=== PATIENT | female | born 1930 | race Caucasian/White ===

== ENCOUNTER 2017-03-10 19:17 | Inpatient (IN) | payer MEDICARE ==
--- NOTE | 2017-03-10 20:12 | RAD ---
RADIOGRAPH RIGHT HIP 2 VIEWS: 03/10/17 HISTORY: 87-year-old female with acute traumatic right hip pain from fall. FINDINGS: Intertrochanteric fracture. IMPRESSION: Acute, traumatic, angulated, comminuted, and displaced right intertrochanteric fracture. POS: [facility]
[2017-03-10 20:21] LABS: #Eosinphils 0.1 thou/uL (0.0-0.7); #Monocytes 0.7 thou/uL (0.11-0.59); #Neutrophils 8.8 thou/uL (1.40-6.50); %Basophils 0.2 % (0.0-1.0); %Eosinophils 0.6 % (0.0-10.0); %Lymphocytes 9.6 % (21.0-51.0); %Monocytes 6.4 % (0.0-10.0); Hematocrit 35.8 % (36.0-47.0); Mean Platelet Volume 5.7 fL (7.4-10.4); Red Blood Cell (RBC) Count 3.89 mill/uL (4.20-5.40); White Blood Cell (WBC) Count 10.5 thou/uL (4.8-10.8)
[2017-03-10 20:28] LABS: PTT 24.4 SEC (22.9-36.1); Prothrombin Time 14.4 SEC (12.0-14.7)
[2017-03-10 20:45] LABS: ALT (SGPT) 16 U/L (8-55); AST (SGOT) 24 U/L (5-34); Alkaline Phosphatase 53 U/L (40-150); Anion Gap 11 mmol/L (10-20); BUN (Urea Nitrogen) 12 mg/dL (9.8-20.1); Bilirubin, Total 0.3 mg/dL (0.2-1.2); Calc. Creatinine Clearance 0 mL/min (70-130); Calcium 8.3 mg/dL (7.8-10.44); Carbon Dioxide 25 mmol/L (23-31); Chloride 103 mmol/L (98-107); Estimated GFR-MDRD 64; Globulin 3.4 g/dL (2.4-3.5); Protein, Total 6.8 g/dL (6.0-8.3)
--- NOTE | 2017-03-10 21:04 | RAD ---
RADIOGRAPH PELVIS 1 VIEW: Date: 03/10/17 Time: 7:54 p.m. HISTORY: 87-year-old female status post acute pelvic trauma from fall. FINDINGS: Comminuted fracture of the right intertrochanteric region of the proximal right femur. The lesser tr ochanteric fracture fragment is medially and inferiorly displaced. There is varus angulation, and ov erlap of fracture fragments. Diffuse osteopenia and a large amount of overlying bowel gas and stool, could obscure a fracture of the sacrum. IMPRESSION: Acute, traumatic, displaced right intertrochanteric fracture. POS: [facility]
--- NOTE | 2017-03-10 21:06 | RAD ---
RADIOGRAPH CHEST 1 VIEW: Supine 03/10/17 HISTORY: 87-year-old female for preoperative clearance for acute, traumatic, right intertrochanteric fracture . FINDINGS: There is no air space density or pulmonary edema. The lateral costophrenic angles are sharp. Supine positioning makes this study insensitive for pneumothorax detection. IMPRESSION: No acute pulmonary findings. lizzie [] POS: [facility]
[2017-03-10] MEDS ORDERED: Fentanyl 100 MCG/2 ML VIAL ONE (21:15)
--- NOTE | 2017-03-10 21:15 | RAD ---
RADIOGRAPH RIGHT KNEE 2 VIEWS: Date: 03/10/17 Time: 8:30 p.m. HISTORY: 87-year-old female with acute traumatic right knee pain due to fall. FINDINGS: There are two vertically oriented screws, and a cerclage wire, at the patella. There is suprapatella r anterior soft tissue swelling. There is diffuse, severe osteopenia. No acute fracture is identifie d, but in general, at least a three view, and preferably a four view, radiograph of the knee is robyn mmended for trauma, to increase the sensitivity for the detection of mildly displaced and nondispla diana fractures. No high grade degenerative changes. No dislocation. IMPRESSION: 1. Status post pin and wire fixation of old patellar fracture. 2. No acute fracture identified. 3. Suprapatellar mild anterior soft tissue swelling. 4. Severe osteoporosis. POS: [facility]
[2017-03-10] MEDS ORDERED: Dextrose 5% in Water 1,000 ML IV PRN (22:20)
[2017-03-10] MEDS ORDERED: hydrALAZINE 20 MG/ML VIAL SLOW IVP PRN (22:20)
[2017-03-10] MEDS ORDERED: HYDROcodone/Acetaminophen 5/325 mg Tablet PO PRN ×2 (22:20)
[2017-03-10] MEDS ORDERED: Ondansetron HCl/PF 4 MG/2 ML Vial IVP PRN (22:20)
[2017-03-10] MEDS ORDERED: Ondansetron ODT 4 MG TAB PO PRN (22:20)
[2017-03-10] MEDS ORDERED: Dextrose 50% Abboject 50 ML SYRINGE SLOW IVP PRN (22:20)
--- NOTE | 2017-03-10 22:59 | HP ---
REQUESTING PHYSICIAN: Dr. Gramajo. ATTENDING SURGEON: Dr. Rivera. CONSULTATIONS: Orthopedics, Dr. Varner. HISTORY OF PRESENT ILLNESS: The patient is an 87-year-old woman who lives in an apartment alone. W hen she was reaching up to turn on the ceiling fan, lost her balance and fell landing on her right h ip. The patient denied any loss of consciousness. She was able to activate her Life Alert and EMS arrived and brought her to the Emergency Department, evaluated, examined and noted to have a right i ntertrochanteric fracture of her femur, at which time we were asked to evaluate the patient for admi ssion and obtained orthopedic consultations. ALLERGIES: None. CURRENT MEDICATIONS: Megace, levothyroxine and aspirin. PAST MEDICAL HISTORY: Hypothyroidism, anxiety, depression and mild dementia. PAST SURGICAL HISTORY: Bilateral mastectomy, right knee scope, thyroidectomy, bladder sling and hys terectomy. SOCIAL HISTORY: Patient lives home alone near her granddaughter. She denies drug, alcohol or tobac co use. REVIEW OF SYSTEMS: Ten-point review of systems was negative, unless otherwise stated. PHYSICAL EXAMINATION: VITAL SIGNS: Blood pressure 152/64, heart rate 68, respirations 18, temperature is 98.0 and oxygen saturation is 100% on room air. GENERAL: Patient is resting in the emergency room bed. She is alert and oriented x2. [place] coma scale is 14. Patient is lying with her eyes closed. HEENT: Head is normocephalic, atraumatic. Eyes: Extraocular motion intact. PERRLA bilaterally. Ears are atraumatic without discharge. Nose is atraumatic without discharge. Oropharynx is clear. NECK: Nontender. Trachea is midline. No JVD. CHEST: Clear to auscultation with good inspiratory and expiratory effort. HEART: Regular rate and rhythm. ABDOMEN: Soft, flat and nontender. Pelvis is stable with tenderness to the right lateral hip, whic h she holds in some external rotation. EXTREMITIES: Neurovascularly intact x4. BACK: By report is atraumatic and nontender. LABORATORY FINDINGS: White blood cell count 10.5, hemoglobin 11.6, hematocrit 35.8 and platelets 30 3. Sodium 135, potassium 3.8, chloride 103, CO2 of 25, BUN 12, creatinine 0.84 and glucose 133. LF Ts are unremarkable. PTT 24, PT 14 and INR 1.1. RADIOGRAPHIC REPORTS: Radiographs of the right hip show an acute traumatic angulated comminuted and displaced right intertrochanteric fracture. ASSESSMENT AND PLAN: 1. Status post ground level fall. 2. Acute traumatic pain. 3. Right femoral neck fracture. PLAN: Will be to admit the patient to the surgical floor, pain management, pulmonary toilet, gastri tis, mechanical DVT prophylaxis. Overnight, the patient will be made n.p.o. at midnight. Per kelsey jones with Dr. Varner, patient will undergo surgical intervention tomorrow. The evaluation examin ation, laboratory and radiographic findings were all discussed with Dr. Rivera at the time of dictati on. He was in agreement with this plan. The patient's family's questions were answered at this michael e also.
[2017-03-10] MEDS: Ketorolac Tromethamine 30 MG/ML VIAL IVP SCH (23:55)
[2017-03-10] MEDS: Sodium Chloride 0.9% 1,000 ML IV SCH (23:56)
[2017-03-11] MEDS: Ketorolac Tromethamine 30 MG/ML VIAL IVP SCH ×2 (05:10→12:04)
[2017-03-11 05:36] LABS: #Lymphocytes 1.2 thou/uL (1.20-3.40); #Monocytes 1.1 thou/uL (0.11-0.59); #Neutrophils 10.8 thou/uL (1.40-6.50); %Basophils 0.1 % (0.0-1.0); %Eosinophils 0.1 % (0.0-10.0); %Lymphocytes 9.3 % (21.0-51.0); Hematocrit 31.6 % (36.0-47.0); Mean Platelet Volume 5.5 fL (7.4-10.4); Red Blood Cell (RBC) Count 3.44 mill/uL (4.20-5.40); White Blood Cell (WBC) Count 13.1 thou/uL (4.8-10.8)
[2017-03-11 05:54] LABS: Anion Gap 12 mmol/L (10-20); BUN (Urea Nitrogen) 15 mg/dL (9.8-20.1); Calc. Creatinine Clearance 30 mL/min (70-130); Carbon Dioxide 23 mmol/L (23-31); Chloride 103 mmol/L (98-107); Estimated GFR-MDRD 69
[2017-03-11 08:22] LABS: Magnesium 1.8 mg/dL (1.6-2.6); Phosphorus 4.1 mg/dL (2.3-4.7)
--- NOTE | 2017-03-11 08:42 | RAD ---
SINGLE VIEW OF CHEST: Date: 03/11/17 COMPARISON: 03/10/17. HISTORY: Tachycardia. FINDINGS: Single view of the chest shows a normal sized cardiomediastinal silhouette. Increased interstitial l gordo markings and hyperexpansion of the lungs are likely secondary to COPD. Biapical pleural thickeni ng is seen. There is no evidence of consolidation, mass, or pleural effusion. IMPRESSION: COPD without acute cardiopulmonary disease. POS: [facility]
[2017-03-11] MEDS: Sodium Chloride 0.9% 1,000 ML IV SCH ×2 (09:03→16:53)
[2017-03-11] MEDS: Famotidine 20 MG TAB PO SCH (09:04)
[2017-03-11] MEDS ORDERED: CEFAZOLIN/Water 2 GM/20 ML SYRINGE SLOW IVP SCH (09:30)
[2017-03-11] MEDS: Morphine 2 MG/ML SYRINGE SLOW IVP PRN (09:56)
[2017-03-11] MEDS ORDERED: CEFAZOLIN/Water 2 GM/20 ML SYRINGE ONE (12:05)
[2017-03-11] MEDS ORDERED: PHENYLEPHRINE-NS 100 MCG/ML 10 ML SYRINGE ONE (13:03)
[2017-03-11] MEDS ORDERED: Propofol 200 MG/20 ML VIAL ONE (13:03)
[2017-03-11] MEDS ORDERED: Lidocaine 1% PF 5 ML VIAL ONE (13:03)
[2017-03-11] MEDS ORDERED: Fentanyl 100 MCG/2 ML VIAL ONE (13:15)
--- NOTE | 2017-03-11 13:24 | CON ---
DATE OF CONSULTATION: 03/11/2017 HISTORY OF PRESENT ILLNESS: We were asked to see the patient to the emergency room. The patient is a very sweet lady, who was in her new apartment for the last week. She went to turn on the ceiling fan and she states she tripped over her own foot. She feels fell on her left hip. Her granddaughter is at the bedside with her. Patient recently moved here a week ago after her passed within the last 2 weeks. She is very sweet, oriented, answers questions appropriately. She does have pain. She states that is mild, as long as she does not move. She denies any numbness, tingling down the feet. Granddaughter states for what they know grandma she is very healthy and her new doctor upon arriving in [facility] is Dr. Garzon. PAST MEDICAL HISTORY: Positive for thyroid disorder, occasional anxiousness, nervousness. She is not sure if she gets rapid heart rate, but she does get a feeling of some pulsations once in a while. ALLERGIES: No known drug allergies. CURRENT MEDICATIONS: Megestrol, levothyroxine, aspirin. SOCIAL HISTORY: She now resides behind her granddaughter and lives on her own apartment. She is active. No alcohol or nicotine products. FAMILY HISTORY: Noncontributory. PAST SURGICAL HISTORY: Bilateral mastectomy, thyroid, bladder sling, hysterectomy, and right knee surgery. PSYCHIATRIC HISTORY: She does have some depression, anxiety and onset of some mild dementia. REVIEW OF SYSTEMS: Denies any shortness of breath, chest pain. No HEENT problems, no bowel or bladder problems, no extremity issues, no neuropathies, only complaint is right hip pain. Rest of review of systems is negative. PHYSICAL EXAMINATION: GENERAL: Very frail looking female resting in bed, in no acute distress. Speech is clear. Affect pleasant. Answers questions appropriately. She is alert and oriented x3. HEENT: Face symmetric. Tongue midline. NECK: Supple. Moving neck well. EXTREMITIES: Upper extremities. No positive findings found. Strength sensations and pulses are intact and equal. Left lower extremity: Few bruises on the lower extremity, but able to move leg well. DP and PT pulses are intact as are sensations. Her lower extremity DP, PT pulses intact. Sensations are intact as is proprioception, but movement of that right hip causes a good deal of pain. She does have some tenderness to palpation over the greater trochanteric bursa area in the groin. ASSESSMENT: Right hip fracture. PLAN: I spoke with the granddaughter and the patient about options. She is still active. Her just passed and she moved to town. She would like to remain active. Therefore, we would like to do a right TFN Nailing as has been explained to the patient and granddaughter and they are amenable to go forth with surgery. We discussed the risks and benefits of the surgical intervention. They are still agreeable to go forth with surgery. She needs to be cleared by Trauma and Anesthesia before any surgical intervention and this has been explained to them and they understand. We will keep her n.p.o., but she may use some Lemon Glycerine Swabs to help with mouth dryness. If she is cleared for surgery, we will get her on the surgical schedule today and get her fixed up and hopefully will work with PT and OT in the next few days. ALBINA
[2017-03-11] MEDS ORDERED: Ondansetron HCl/PF 4 MG/2 ML Vial IVP PRN (13:55)
[2017-03-11] MEDS ORDERED: Promethazine HCl 25 MG/ML VIAL SLOW IVP PRN (13:55)
[2017-03-11] MEDS ORDERED: Promethazine HCl 25 MG/ML VIAL IM PRN (13:55)
--- NOTE | 2017-03-11 15:19 | PRG ---
DATE OF SERVICE: 03/11/2017 DATE OF ADMISSION: 03/10/2017 SUBJECTIVE: The patient is hospital day #2 status post ground level fall sustaining hip fracture. The patient has currently been n.p.o. overnight, awaiting surgery. The patient was cleared for surg mario this morning and will be taken down to the operating room, preop holding area, shortly. The pat ient states that her pain is being controlled and she has no complaints at this time. OBJECTIVE: VITAL SIGNS: Temperature is 98.4, heart rate 87, respirations 14, and blood pressure 119/70. GENERAL: Patient is resting comfortably in bed. She is alert and oriented x3. HEENT: Unremarkable. CHEST: Clear to auscultation bilaterally. HEART: Regular rate and rhythm. ABDOMEN: Soft, flat, nontender. EXTREMITIES: Neurovascularly intact x4. The patient still has pain along the right hip consistent with her fracture. LABORATORY DATA AND IMAGING: White blood cell count 13.1, hemoglobin 10.2, hematocrit 31.6, and rosangela telets 300. Sodium 133, potassium 5.4, chloride 103, CO2 23, BUN 15, creatinine 0.79, glucose 113, phosphorus 4.1, and magnesium 1.8. Chest x-ray this morning shows COPD without acute cardiopulmonar y disease. ASSESSMENT AND PLAN: 1. Status post ground level fall. 2. Right hip fracture. PLAN: Will be to evaluate the patient again once she is postop. Continue physical and occupational therapy and rehab consultation. Evaluation, examination, laboratory, and radiographic findings wer e all discussed during rounds with Dr. Rivera.
[2017-03-11] MEDS: CEFAZOLIN 1 GM VIAL SLOW IVP SCH (20:44)
--- NOTE | 2017-03-12 00:24 | RAD ---
RADIOGRAPH RIGHT HIP SIX VIEWS: ATTENTION ESTER IN BILLING: This is indeed a six view study. DATE: 03/11/2017 HISTORY: 87-year-old female, status post acute traumatic right hip fracture. COMPARISON: 03/10/2017 at 7:53 p.m. FINDINGS: 6 small field of view fluoroscopic spot images obtained with C-arm in the OR. The hip and entire fe mur were imaged. The comminuted and displaced intertrochanteric fracture has been reduced, and fixa kd with a Diaz type dynamic compression screw, with a long intramedullary nail that reaches the distal femoral metaphysis. There is at least one distal stabilization screw. There are also two s crews and a cerclage wire at the patella, old. IMPRESSION: Status post reduction and fixation of acute, traumatic, displaced right intertrochanteric fracture w ith a Diaz type dynamic compression screw with a long intramedullary nail. POS: [facility]
[2017-03-12] MEDS: Sodium Chloride 0.9% 1,000 ML IV SCH (04:54)
[2017-03-12] MEDS: CEFAZOLIN 1 GM VIAL SLOW IVP SCH ×2 (04:57→13:25)
[2017-03-12 08:25] LABS: Hematocrit 23.3 % (36.0-47.0)
[2017-03-12] MEDS: Famotidine 20 MG TAB PO SCH (08:49)
[2017-03-12] MEDS: Polyethylene Glycol 3350 17 GM Packet PO SCH (09:09)
[2017-03-12] MEDS: Senokot S 8.6-50 MG TAB PO SCH ×2 (09:09→20:52)
[2017-03-12] MEDS: Morphine 2 MG/ML SYRINGE SLOW IVP PRN (13:23)
[2017-03-12 13:47] LABS: #Lymphocytes 1.1 thou/uL (1.20-3.40); #Monocytes 0.8 thou/uL (0.11-0.59); #Neutrophils 7.6 thou/uL (1.40-6.50); %Basophils 0.3 % (0.0-1.0); %Eosinophils 0.5 % (0.0-10.0); %Lymphocytes 11.7 % (21.0-51.0); %Monocytes 8.1 % (0.0-10.0); Hematocrit 22.9 % (36.0-47.0); Mean Platelet Volume 6.4 fL (7.4-10.4); Red Blood Cell (RBC) Count 2.48 mill/uL (4.20-5.40); White Blood Cell (WBC) Count 9.5 thou/uL (4.8-10.8)
[2017-03-12 14:11] LABS: Troponin I 0.036 ng/mL (< 0.028)
--- NOTE | 2017-03-12 14:19 | RAD ---
SINGLE VIEW OF THE CHEST: Comparison: 03-11-17 History: Tachycardia. FINDINGS: Single view of the chest shows normal sized cardiomediastinal silhouette with atherosclerotic calcif ications in the aorta. Hyperexpansion of lungs and increased interstitial lung markings are likely s econdary to COPD. Biapical pleural thickening is stable. IMPRESSION: 1. No evidence of acute cardiopulmonary disease. 2. COPD. POS: [facility]
[2017-03-12] MEDS ORDERED: Acetaminophen 325 MG TAB PO PRN (16:26)
[2017-03-12 16:29] LABS: Anion Gap 10 mmol/L (10-20); BUN (Urea Nitrogen) 13 mg/dL (9.8-20.1); Calc. Creatinine Clearance 39 mL/min (70-130); Calcium 6.9 mg/dL (7.8-10.44); Carbon Dioxide 21 mmol/L (23-31); Chloride 104 mmol/L (98-107); Estimated GFR-MDRD Greater than 90; Magnesium 1.6 mg/dL (1.6-2.6); Phosphorus 2.7 mg/dL (2.3-4.7)
--- NOTE | 2017-03-12 16:53 | OP ---
DATE OF SURGERY: 03/11/2017 PREOPERATIVE DIAGNOSIS: Right intertrochanteric femur fracture. POSTOPERATIVE DIAGNOSIS: Right intertrochanteric femur fracture. SURGICAL PROCEDURE: TFN placement for right intertrochanteric femur fracture. ANESTHESIA: General. SURGEON: Zenon Varner M.D. JACK TAMP OPERATOR: Vern Van PA-C. IMPLANTS: TFN 11 x 380 mm with a 100 mm hip screw. COMPLICATIONS: None. DRAINS: None. SPECIMEN: None. OUTCOME: Satisfactory. INDICATIONS: The patient is an 87-year-old lady status post ground level fall sustaining a displace d and mildly comminuted right intertrochanteric femur fracture. Her fracture did a spiral heading t owards the subtrochanteric region and as such, we have decided to proceed with placement of a longer TFN device. Informed consent has been obtained and all questions have been answered. PROCEDURE IN DETAIL: After the induction of general anesthesia, the patient was positioned supine o n the fracture table with the injured extremity held in longitudinal traction. Next, a sterile prep and drape was performed of the right lateral thigh. Next, a small skin incision was made proximal to the greater trochanter and then dissection was carried down bluntly such that the tip of the grea ter trochanter could be easily palpated. A threaded guidewire was then inserted from the tip of the greater trochanter into the proximal femoral canal. This was followed by passage of an opening chema david over this threaded guidewire. Next, a ball-tip guidewire was passed down the canal of the femur . Measurement off of this ball tipped guidewire determined that a 380 mm nail would be of appropria te length. As such, an 11 x 380 mm nail was then passed down the canal with relative ease. Once ap propriately positioned, a second incision was made distal to the first and then the jig for the hip screw was inserted. A threaded guidewire was then inserted under C-arm guidance up the femoral neck into the femoral head, try and achieve a center-center position. Once positioned, measurement off the pin was determined and then the reamer passed over the pin. The hip screw was then inserted wit hout difficulty. The locking mechanism was engaged then backed off a half turn to allow for normal dynamic sliding of the hip screw. At completion of this, a third incision was made distally towards the knee under C-arm guidance in freehand technique, a single cross lock screw was then inserted ac ross the nail. At completion of this, final AP, lateral C-arm images were obtained of the femur and hip. The three wounds were irrigated with bulb syringe with proximal most wound closed in layers w ith 2-0 Vicryl and zeinab. The other two incisions closed with a simple staple closure. A Xerofor m gauze tape dressing was applied to each of the 3 incisions and then patient was transferred to rec overy room in stable condition. There were no complications. She tolerated the procedure well.
[2017-03-12] MEDS ORDERED: Acetaminophen 500 MG TAB PO SCH (17:00)
[2017-03-12] MEDS ORDERED: Magnesium Sulfate 3 GM in Sodium Chloride 0.9% 250 ML 250 ML IVPB SCH (17:15)
--- NOTE | 2017-03-12 17:29 | PRG-2 ---
DATE OF SERVICE: 03/12/2017 SUBJECTIVE: The patient is hospital day #3, postop day #2 from a ground level fall resulting in a h ip fracture which has undergone surgical repair. Overnight, the patient states that her pain was co ntrolled this morning. She was able to tolerate breakfast and has just started to make the first st eps of working with physical therapy. OBJECTIVE: VITAL SIGNS: Temperature is 98.0, heart rate 100, blood pressure 134/80, respirations 18, oxygen sa turation is 100%. GENERAL: The patient is resting comfortably in bed. She is alert and oriented x3. HEENT: Unremarkable. LUNGS: Chest is clear to auscultation with good inspiratory and expiratory effort. HEART: Regular rate and rhythm though slightly tachy. ABDOMEN: Soft, flat, nontender. EXTREMITIES: Pelvis is stable. Surgical site is clean, dry, and intact. LABORATORY DATA: White blood cell count 9.5, hemoglobin 7.4, hematocrit 22.9, platelets 198,000. ASSESSMENT AND PLAN: 1. Status post ground level fall. 2. Anemia secondary to blood loss. 3. Status post ground level fall resulting in right hip fracture, subsequently undergoing surgical repair. PLAN: Today will be to continue physical and occupational therapy and rehab consultation. We will transfuse the patient 1 unit of PRBCs and due to the patient's transient history of tachycardia at a rate greater than 140, we will transfer her to the telemetry unit. The patient's EKGs have all marcus wn sinus tachycardia and is most likely related to her pain. We will adjust her pain medicine to in clude scheduling [place] and make any other interventions as needed. The evaluation, examination, lab oratories and plan was all discussed with Dr. Rivera at rounds.
[2017-03-12] MEDS: traMADol HCl 50 MG TAB PO SCH (18:34)
[2017-03-12] MEDS: Ibuprofen 200 MG TAB PO SCH (21:14)
[2017-03-13] MEDS: traMADol HCl 50 MG TAB PO SCH ×4 (01:33→17:23)
[2017-03-13] MEDS: Ibuprofen 200 MG TAB PO SCH ×3 (05:54→21:23)
[2017-03-13 06:05] LABS: #Eosinphils 0.2 thou/uL (0.0-0.7); #Lymphocytes 1.6 thou/uL (1.20-3.40); #Monocytes 0.9 thou/uL (0.11-0.59); #Neutrophils 6.1 thou/uL (1.40-6.50); %Basophils 0.5 % (0.0-1.0); %Eosinophils 2.6 % (0.0-10.0); %Lymphocytes 18.2 % (21.0-51.0); %Monocytes 9.8 % (0.0-10.0); Hematocrit 25.9 % (36.0-47.0); Mean Platelet Volume 6.4 fL (7.4-10.4); Red Blood Cell (RBC) Count 2.81 mill/uL (4.20-5.40); White Blood Cell (WBC) Count 8.9 thou/uL (4.8-10.8)
[2017-03-13 06:33] LABS: Anion Gap 8 mmol/L (10-20); BUN (Urea Nitrogen) 15 mg/dL (9.8-20.1); Calc. Creatinine Clearance 45 mL/min (70-130); Carbon Dioxide 25 mmol/L (23-31); Chloride 107 mmol/L (98-107); Estimated GFR-MDRD Greater than 90; Magnesium 2.4 mg/dL (1.6-2.6); Phosphorus 2.1 mg/dL (2.3-4.7)
[2017-03-13] MEDS: Famotidine 20 MG TAB PO SCH (09:37)
[2017-03-13] MEDS: Polyethylene Glycol 3350 17 GM Packet PO SCH (09:37)
[2017-03-13] MEDS: Senokot S 8.6-50 MG TAB PO SCH ×2 (09:37→21:23)
--- NOTE | 2017-03-13 14:52 | PQF ---
CLINICAL DOCUMENTATION IMPROVEMENT CLARIFICATION FORM: ICD-10 Updated PLEASE DO AN ADDENDUM TO THE PROGRESS NOTE WITH ANY DOCUMENTATION UPDATES OR ADDITIONS AND CARRY THROUGH TO DC SUMMARY. THANK YOU. DATE: 03/13/17 ATTN: Dr. Rivera Please exercise your independent, professional judgment in responding to the clarification form. Clinical indicators are provided on the bottom of this form for your review Please check appropriate box(s): [ x ] Acute blood loss anemia [ ] Post-op anemia related to acute blood loss [ ] Other diagnosis [ ] Unable to determine For continuity of documentation, please document condition throughout progress notes and discharge summary. Thank You. CLINICAL INDICATORS - SIGNS / SYMPTOMS / LABS H&P: HGB 11.6 HCT 35.8 PN 03/12: HGB 7.4 HCT 22.9 ANEMIA SECONDARY TO BLOOD LOSS RISKS: OP NOTE 03/11: TFN PLACEMENT FOR R INTERTROCHANTERIC FEMUR FX TREATMENT: PN 03/12: WILL TRANSFUSE PT 1 UNIT PRBCS (This form is maintained as a part of the permanent medical record) 2014 [employer] All Rights Reserved Richelle Nichole RN, BSN [email or web address] Office: [phone] [facility]
[2017-03-13] MEDS ORDERED: Bisacodyl 10 MG SUPP PR SCH (18:45)
[2017-03-13 19:44] LABS: #Eosinphils 0.2 thou/uL (0.0-0.7); #Lymphocytes 1.7 thou/uL (1.20-3.40); #Monocytes 0.8 thou/uL (0.11-0.59); #Neutrophils 6.1 thou/uL (1.40-6.50); %Basophils 0.3 % (0.0-1.0); %Eosinophils 2.1 % (0.0-10.0); %Lymphocytes 19.5 % (21.0-51.0); %Monocytes 9.1 % (0.0-10.0); Hematocrit 25.2 % (36.0-47.0); Red Blood Cell (RBC) Count 2.76 mill/uL (4.20-5.40); White Blood Cell (WBC) Count 8.9 thou/uL (4.8-10.8)
[2017-03-13 19:58] LABS: Anion Gap 7 mmol/L (10-20); BUN (Urea Nitrogen) 18 mg/dL (9.8-20.1); Calc. Creatinine Clearance 46 mL/min (70-130); Carbon Dioxide 27 mmol/L (23-31); Chloride 102 mmol/L (98-107); Estimated GFR-MDRD Greater than 90; Magnesium 1.9 mg/dL (1.6-2.6)
[2017-03-13 20:00] LABS: Phosphorus 1.8 mg/dL (2.3-4.7)
[2017-03-14] MEDS: traMADol HCl 50 MG TAB PO SCH ×4 (00:05→18:42)
[2017-03-14] MEDS: Ibuprofen 200 MG TAB PO SCH ×3 (05:26→21:57)
[2017-03-14] MEDS: Levothyroxine Sodium 75 MCG TAB PO SCH (05:28)
[2017-03-14 06:30] LABS: #Eosinphils 0.2 thou/uL (0.0-0.7); #Lymphocytes 1.3 thou/uL (1.20-3.40); #Monocytes 0.6 thou/uL (0.11-0.59); #Neutrophils 6.2 thou/uL (1.40-6.50); %Basophils 0.2 % (0.0-1.0); %Eosinophils 2.8 % (0.0-10.0); %Lymphocytes 15.1 % (21.0-51.0); %Monocytes 7.3 % (0.0-10.0); Hematocrit 25.5 % (36.0-47.0); Mean Platelet Volume 6.2 fL (7.4-10.4); Red Blood Cell (RBC) Count 2.77 mill/uL (4.20-5.40); White Blood Cell (WBC) Count 8.4 thou/uL (4.8-10.8)
[2017-03-14 06:48] LABS: Anion Gap 8 mmol/L (10-20); BUN (Urea Nitrogen) 13 mg/dL (9.8-20.1); Calc. Creatinine Clearance 49 mL/min (70-130); Carbon Dioxide 26 mmol/L (23-31); Chloride 104 mmol/L (98-107); Estimated GFR-MDRD Greater than 90; Magnesium 1.8 mg/dL (1.6-2.6); Phosphorus 2.3 mg/dL (2.3-4.7)
--- NOTE | 2017-03-14 07:06 | PRG-2 ---
DATE OF SERVICE: 03/13/2017 DATE OF ADMISSION: 03/10/2017 SUBJECTIVE: This patient is hospital day #4, postop day #2, from a ground level fall resulting in hip fracture, which has undergone surgical repair. Overnight, the patient states pain has been well controlled. She is able to tolerate breakfast and has been doing well, working with PT and OT. Heart rate has been stable ever since she has been on tele, and today has been within normal range and no longer tachycardic. No other concerns or complaints at this time. OBJECTIVE: VITAL SIGNS: Temperature is 97.7, pulse is 79, respirations 16, O2 sat 97% on room air, blood pressure is 113/51. GENERAL: The patient is resting comfortably, alert and oriented x3. HEENT: Unremarkable. LUNGS: Clear to auscultation. Nonlabored breathing, symmetric chest expansion. CARDIOVASCULAR: Regular rate and rhythm and no murmurs or gallops. ABDOMEN: Soft, flat, nontender. Bowel sounds heard in all 4 quadrants. EXTREMITIES: Able to move all 4 extremities. Surgery site is clean, dry, and intact. LABORATORY DATA: White blood cell 8.8, hemoglobin 8.4, hematocrit 25.2, platelets 202. Chemistry: Sodium was 132, potassium was 3.7, chloride 102, carbon dioxide 27, BUN 18, creatinine 0.58, calcium 7.0, phosphorus 1.8 and magnesium was 1.9. ASSESSMENT AND PLAN: 1. Status post ground fall. 2. Anemia secondary to blood loss. 3. Status post ground level fall with right hip fracture, status post surgical repair. PLAN: The patient will continue to work with physical and occupational therapy. We will await rehab screen. We will restart her levothyroxine. We will check BMP tomorrow to check her potassium and replace as needed. She was no longer tachycardic, but will continue her on tele monitoring for 1 more day and then will continue on current pain regimen. Her pain is being well controlled. We will continue to monitor vital signs and check labs as needed. This patient was seen and plan of care was discussed with Dr. Silvio Rivera. ALBINA
[2017-03-14] MEDS ORDERED: Potassium Phosphate 30 MMOL, Magnesium Sulfate 3 GM in Sodium Chloride 0.9% 250 ML 250 ML IVPB SCH (09:00)
[2017-03-14] MEDS ORDERED: Megestrol Acetate 40 MG TAB PO SCH (09:30)
[2017-03-14] MEDS: Famotidine 20 MG TAB PO SCH (09:37)
[2017-03-14] MEDS: Senokot S 8.6-50 MG TAB PO SCH ×2 (09:37→21:24)
[2017-03-14] MEDS: Polyethylene Glycol 3350 17 GM Packet PO SCH (09:38)
[2017-03-14] MEDS ORDERED: Levothyroxine Sodium 75 MCG TAB PO SCH (10:00)
--- NOTE | 2017-03-14 12:47 | CON ---
DATE OF CONSULTATION: 03/14/2017 HISTORY OF PRESENT ILLNESS: The patient is an 87-year-old woman with a history of palpitations who was noted to have an irregular heart rhythm following surgery. The patient states that for many yea rs she has had palpitations and she never has undergone an evaluation. The patient was admitted wit h a hip fracture, she underwent surgery. Following the surgery, was noted to be in a rapid irregula r heart rhythm. The patient reports having palpitation. She denies having any chest discomfort. T he patient denies having any dyspnea. PAST MEDICAL HISTORY: Significant for; 1. Thyroid disorder. 2. Parathyroid disorder. 3. Depression. PAST SURGICAL HISTORY: She has had bilateral mastectomies, hip surgery, knee surgery and bladder turner rgery. MEDICATIONS ON ADMISSION: Include, she takes a baby aspirin tablet daily, metoprolol 50 XL daily, M egace 20 b.i.d. and Synthroid 75 mcg daily. FAMILY HISTORY: Positive family history of heart disease. ALLERGIES: No known drug allergies. SOCIAL HISTORY: Nonsmoker. REVIEW OF SYSTEMS: Ten-point systems unremarkable. No history of easy bruising or bleeding. PHYSICAL EXAMINATION: GENERAL: This is an elderly thin woman in no acute distress, alert and oriented x3. VITAL SIGNS: Blood pressure 176/95. NECK: Showed no jugular venous distention. LUNGS: Clear to auscultation. HEART: Regular rate and rhythm, normal S1 and S2, 1/6 systolic murmur. ABDOMEN: Nondistended. EXTREMITIES: Showed mild edema. SKIN: Warm and dry. NEUROLOGIC: Nonfocal. VASCULAR: Radial pulses are 2+. LABORATORY AND IMAGING RESULTS: Sodium 134, potassium 3.8, chloride 104, bicarbonate 26, BUN 15 and creatinine is 0.53. Troponin was 0.036. White blood cell count is 8.4, hemoglobin 8.2, hematocrit 25.5 and her platelets are 230. EKG revealed normal sinus rhythm with mild voltage criteria for le ft ventricular hypertrophy. Telemetry monitoring revealed supraventricular tachycardia possible atr ial flutter. IMPRESSION: 1. Supraventricular tachycardia/atrial flutter. 2. Status post hip surgery. 3. Thyroid disorder. This patient presents with supraventricular tachycardia/possible atrial flutter. We will start the patient on flecainide and Toprol. She would be a poor patient with anticoagulation with her history of falling. We will follow this patient with you through her hospitalization. PLAN: 1. Start flecainide 50 b.i.d. 2. Restart Toprol.
--- NOTE | 2017-03-14 14:21 | PRG ---
DATE OF SERVICE: 03/13/2017 SUBJECTIVE: The patient is hospital day #5, postop day #3 from a ground level fall and a hip fractu re. She has undergone surgical repair. Overnight the patient's pain has been controlled, but she n oted fluttering of her heart. It is noted in telemetry to have atrial flutter and some supraventric ular tachycardia which subsided with some vagal maneuvers as reported by overnight team. Cardiology consult was called. At this time evaluation this a.m. the patient denies any chest pain. She does report some fluttering of her heart, but otherwise hip pain has been controlled with the medication s we are giving her. OBJECTIVE: VITAL SIGNS: Temperature 97.4, heart rate 83, O2 sat 97% on room air, blood pressure 176/95. GENERAL: The patient is resting comfortably. She is attempting to get out of bed with the help of her aide. She is alert and oriented x3. HEENT: Unremarkable. LUNGS: Clear to auscultation, nonlabored. Breathing symmetrical, chest expansion. CARDIOVASCULAR: S1 and S2, regular rate and rhythm. ABDOMEN: Soft, nontender, nondistended. Bowels heard in all 4 quadrants. EXTREMITIES: She is able to move all 4. Surgical site is clean, dry and intact. LABORATORY FINDINGS: CBC; WBC 8.4, hemoglobin 8.2, hematocrit 25.5, platelet count 230. Chemistry showed sodium 134, potassium 3.8, chloride 104, bicarbonate 26, BUN 13, creatinine 0.53. ASSESSMENT AND PLAN: 1. Status post fall. 2. Anemia secondary to blood loss. 3. Status post ground level fall and right hip fracture with surgical repair. 4. Paroxysmal atrial flutter, supraventricular tachycardia. PLAN: The patient will continue to work with Physical and Occupational Therapy. We will continue t o rehab screen with answer pending insurance. Restart her home medications. We will check labs in the a.m. She will be also pending Cardiology consult at this time. We will continue to monitor her vital signs and check her laboratory values. The patient was seen at bedside by Dr. Silvio Rivera and he agreed with the above plan at the time of dictation.
[2017-03-15] MEDS: traMADol HCl 50 MG TAB PO SCH ×5 (00:53→22:49)
[2017-03-15] MEDS: Ibuprofen 200 MG TAB PO SCH ×3 (05:38→22:02)
[2017-03-15] MEDS: Levothyroxine Sodium 75 MCG TAB PO SCH (05:38)
[2017-03-15] MEDS: Senokot S 8.6-50 MG TAB PO SCH ×2 (08:58→22:48)
[2017-03-15] MEDS: Aspirin 325 mg Enteric Coated Tablet PO SCH (08:58)
[2017-03-15] MEDS: Megestrol Acetate 40 MG TAB PO SCH (08:58)
[2017-03-15] MEDS: Famotidine 20 MG TAB PO SCH (08:58)
[2017-03-15] MEDS: Polyethylene Glycol 3350 17 GM Packet PO SCH (08:59)
[2017-03-16] MEDS: Ibuprofen 200 MG TAB PO SCH ×3 (06:41→21:11)
[2017-03-16] MEDS: Levothyroxine Sodium 75 MCG TAB PO SCH (06:42)
[2017-03-16] MEDS: traMADol HCl 50 MG TAB PO SCH ×4 (06:42→23:38)
[2017-03-16] MEDS: Megestrol Acetate 40 MG TAB PO SCH (08:22)
[2017-03-16] MEDS: Senokot S 8.6-50 MG TAB PO SCH ×2 (08:22→21:10)
[2017-03-16] MEDS: Polyethylene Glycol 3350 17 GM Packet PO SCH (08:22)
[2017-03-16] MEDS: Famotidine 20 MG TAB PO SCH (08:23)
[2017-03-16] MEDS: Aspirin 325 mg Enteric Coated Tablet PO SCH (08:23)
--- NOTE | 2017-03-16 21:28 | PRG-2 ---
DATE OF SERVICE: 03/16/2017 DATE OF ADMISSION: 03/10/2017 SUBJECTIVE: The patient is hospital day #13, postop day #5 from a ground level fall and hip fractur e. She has undergone surgical repair. The patient denies any acute events overnight and is resting in bed, now just got done working with PT and OT, just reports a little bit of pain, but pain being well controlled. She says she is doing well, tolerating diet and has no other concerns or complain ts at this time. OBJECTIVE: VITAL SIGNS: Temperature is 98.3, pulse 75, respirations 18, O2 sat 97% on room air, and blood pres sure is 113/54. GENERAL: The patient is resting in bed, alert and oriented x3. HEENT: Unremarkable. LUNGS: Clear to auscultation nonlabored. Breathing symmetrical and chest expansion nonlabored. CARDIOVASCULAR: Regular rate and rhythm. No murmurs or gallops. ABDOMEN: Soft, nontender, nondistended. EXTREMITIES: Able to move all 4 extremities. Surgical site is clean, dry, and intact. NEUROLOGIC: No focal neuro deficits. LABORATORY DATA AND IMAGING: No new labs to review today and no new images to review today. ASSESSMENT AND PLAN: 1. Status post fall. 2. Anemia secondary to blood loss, improving. 3. Status post ground level fall and right hip fracture with surgical repair. 4. Paroxysmal atrial flutter, supraventricular tachycardia. Patient was awaiting placement in [facility]. She was denied by [employer] today. We will likely now screen her for nursing ho me placement where she can get some PT there. We will continue monitoring her vital signs. We will check labs as needed and replace. We will continue her on flecainide and restart her Toprol as dir ected per Cardiology and we will continue to manage pain. Pain is being well controlled at this michael e. The patient was seen and plan of care was discussed with Dr. Silvio Rivera.
[2017-03-17] MEDS: traMADol HCl 50 MG TAB PO SCH ×2 (04:54→12:41)
[2017-03-17] MEDS: Levothyroxine Sodium 75 MCG TAB PO SCH (04:57)
[2017-03-17] MEDS: Ibuprofen 200 MG TAB PO SCH ×2 (04:57→15:26)
[2017-03-17] MEDS: Aspirin 325 mg Enteric Coated Tablet PO SCH (10:21)
[2017-03-17] MEDS: Senokot S 8.6-50 MG TAB PO SCH (10:22)
[2017-03-17] MEDS: Famotidine 20 MG TAB PO SCH (10:22)
[2017-03-17] MEDS: Megestrol Acetate 40 MG TAB PO SCH (10:22)
[2017-03-17] MEDS: Polyethylene Glycol 3350 17 GM Packet PO SCH (10:22)
[2017-03-17] MEDS ORDERED: Ibuprofen 200 MG TAB PO PRN (14:16)
[2017-03-17 15:19] VITALS: BP 162/72; TEMP 98.4
--- OUTSIDE RECORDS SUMMARY | 2017-03-19 19:14 | XMS | Continuity of Care Document ---
:1930 Author Organization [facility] Care Team Providers Name Role Phone Nadege Boland Primary Care Physician Insurance Providers Payer Name Policy Number Subscriber Name Relationship [employer] MED[employer]AGE PPO [id number] MICHAEL ALDANA SELF/SAME PATIENT Advance Directives Directive Response Recorded Date/Time Code Status Level III-DNR 02/27/17 12:35pm Advance Directive? N 02/27/17 4:53am Living Will? N 02/27/17 4:53am Health Care Proxy? N 02/27/17 4:53am Healthcare Power of Farm Products Shipper? N 02/27/17 4:53am Is the patient an Organ Donor? N 02/27/17 2:24am Chief Complaint and Reason for Visit Reason for Visit UTI,DIZZINESS AND GIDDINESS,FALL Problems Active Medical Problems Problem Onset Date Recorded Date Status Dizziness and giddiness Unknown 02/27/17 Active UTI (urinary tract infection) Unknown 02/27/17 Active Fall Unknown 02/27/17 Active Medications Current Home Medications Medication Dose Units Route Directions Days/Qty Instructions Start Date Aspirin (ASPIRIN EC 325 MG By Mouth EVERY DAY @ 30 325 MG TAB) 325 MG 0900 7 TAB Levothyroxine Unknown Sodium (SYNTHROID Dose 0.025 MG TAB) (Unknown Strength) TAB Metoprolol 50 MG By Mouth EVERY DAY @ 30 Succinate (TOPROL 0900 7 XL 50 MG TAB) 50 MG TAB SULFAMETHOXAZOLE 1 TAB By Mouth TWICE A DAY 7 Days W/TRIMETHOPRI (0900; 2100) 7 (SULFAMETHOXAZOLE/T MP SS 400 MG/80 MG TAB) 400 MG/80 MG TAB Past Home Medications Medication Directions Ordered Status Atenolol (Atenolol 25 Mg Tab) (Unknown Strength) Tab Unknown Discontinued Tab, Unknown Dose Social History Problem Response Recorded Date Catholic/Cultural Preferences: AD[employer]IST 02/27/17 Occupation: RETIRED 02/27/17 Recreational drugs? N 02/27/17 Alcohol? N 02/27/17 Query Response Start Date Stop Date Smoking Status: Never Smoker Hospital Discharge Instructions Diagnosis: DEHYDRATION/UTI Goal: REHYDRATE/TREAT INFECTION Intervention: FLUIDS/MEDICATIONS Anticipated Discharge Date 03/01/17 Anticipated Discharge Time 1141 Plan of Care Discharge Date 03/01/17 Disposition HOME HEALTH SERVICE Instructions/Education Provided Ischemic Stroke DI for Urinary Tract Infection (UTI) DI for Dizziness-Nonvertigo Forms Provided Patient Portal [employer] Instruct DI How to Quit Smoking Prescriptions See Medications Section Additional Instructions/Education F/U PCP IN 1 WEEK F/U CARDIOLOGY IN 2 WEEKS HOME HEALTH PT/OT--[facility]: [phone] Care Plan and Goals See Discharge Instructions section Functional Status Query Response Date Recorded Speech Pattern: Normal 2017 9:00am Seizure Act.? N 2017 9:00am Sensory/Motor Response: Normal 2017 9:00am RUE Strength: Normal 2017 4:43am LUE Strength: Normal 2017 4:43am RLE Strength: Normal 2017 4:43am LLE Strength: Normal 2017 4:43am Gait: Unsteady 2017 9:00am WNL?+ Y March 01, 2017 9:19am Person: N 2017 9:00am Place: N 2017 9:00am Time: N 2017 9:00am Situation: N 2017 9:00am LOC: Alert 2017 9:00am Allergies, Adverse Reactions, Alerts Allergen Type Severity Reaction Status Last Updated Lactose Intolerance (GI) Allergy Unknown Active 02/28/17 Immunizations Name Date Given Type Flu vaccine this seaso Y Historical Estimated Date: 02/26/17 Historical Pnuemonia Vaccine last 5 years? Y Historical Estimated Date: 03/04/16 Historical Vital Signs Vital Reading Collection Date/Time Result Blood Pressure 03/01/17 11:40am 152/75 Blood Pressure Source 03/01/17 4:00am Auto Cuff Temperature 03/01/17 11:40am 97.8 F Temperature Source 03/01/17 4:00am Oral Respiratory Rate 03/01/17 11:40am 19 Pulse Rate 03/01/17 11:40am 70 Pulse Location 03/01/17 4:00am Monitor Bedside Pulse Oximetry 03/01/17 11:40am 96 Height 03/01/17 5:02am 5 ft 6 in Height 03/01/17 5:02am 167.64 cm Weight 03/01/17 5:02am 172 lb Weight 03/01/17 5:02am 78.16 kg Body Mass Index 03/01/17 5:02am 27.8 kg/m2 Results Laboratory Results Test Name Result Units Flags Reference Collection Result Comments Date/Time Date/Time White Blood 6.1 K/uL 4.8-10.8 03/01/17 03/01/17 Count 4:30am 5:15am Red Blood Count 4.07 M/uL 3.70-5.40 03/01/17 03/01/17 4:30am 5:15am Hemoglobin 11.8 g/dL L 12.0-16.0 03/01/17 03/01/17 4:30am 5:15am Hematocrit 34.6 % L 37.0-47.0 03/01/17 03/01/17 4:30am 5:15am Mean Corpuscular 85.0 fl 80.0-100.0 03/01/17 03/01/17 Volume 4:30am 5:15am Mean Corpuscular 29.1 pg 27.0-31.0 03/01/17 03/01/17 Hemoglobin 4:30am 5:15am Mean Corpuscular 34.2 g/dL 32.0-36.0 03/01/17 03/01/17 Hgb Concent Diff 4:30am 5:15am Red Cell 15.1 % H 11.5-14.5 03/01/17 03/01/17 Distribution 4:30am 5:15am Width Platelet Count 140 K/uL 130-400 03/01/17 03/01/17 4:30am 5:15am Mean Platelet 7.7 fl 7.4-10.4 03/01/17 03/01/17 Volume 4:30am 5:15am Granulocytes (%) 65.1 % 50.0-75.0 03/01/17 03/01/17 4:30am 5:15am Lymphocytes % 19.4 % L 20.0-40.0 03/01/17 03/01/17 4:30am 5:15am Monocytes % 12.6 % 0.0-15.0 03/01/17 03/01/17 4:30am 5:15am Eosinophils % 2.7 % 0.0-10.0 03/01/17 03/01/17 4:30am 5:15am Basophils % 0.2 % 0.0-2.0 03/01/17 03/01/17 4:30am 5:15am Granulocytes # 4.0 K/uL 1.8-6.4 03/01/17 03/01/17 4:30am 5:15am Lymphocytes # 1.2 K/uL 1.2-3.6 03/01/17 03/01/17 4:30am 5:15am Monocytes # 0.8 K/uL 0.3-0.9 03/01/17 03/01/17 4:30am 5:15am Eosinophils # 0.2 K/UL 0.0-0.5 03/01/17 03/01/17 4:30am 5:15am Basophils # 0.0 K/UL 0.0-0.2 03/01/17 03/01/17 4:30am 5:15am Manual NO 03/01/17 03/01/17 Differential 4:30am 5:15am Sodium Level 135 mmol/L 135-144 03/01/17 03/01/17 4:30am 5:18am Potassium Level 3.3 mmol/L L 3.5-5.1 03/01/17 03/01/17 4:30am 5:18am Chloride Level 106 mmol/L 101-111 03/01/17 03/01/17 4:30am 5:18am Carbon Dioxide 24 mmol/L 22-32 03/01/17 03/01/17 Level 4:30am 5:18am Anion Gap 8.3 mmol/L L 10-20 03/01/17 03/01/17 4:30am 5:18am Glucose Level 74 mg/dL 70-109 03/01/17 03/01/17 Random glucose > 200 mg /dL in a patient with typical 4:30am 5:18am symptoms of diabetes (polydipsia, polyuria and unexplained weight loss) satisfies ADA criteria for diabetes mellitus if confirmed by repeat testing on another day. Confirmation is unnecessary when acute metabolic decompensation with hyperglycemia is manifested. Reference: Report of the Expert Committee on the Diagnosis and Classification of Diabetes Mellitus. Diabetes Care, 20:1183, 1997. Blood Urea 13 mg/dL 8-26 03/01/17 03/01/17 Nitrogen 4:30am 5:18am Creatinine 0.60 mg/dL 0.44-1.00 03/01/17 03/01/17 4:30am 5:18am EGFR Note 96.9 63.8-143.2 03/01/17 03/01/17 eGFR (Estimated Glomerular Filtration Rate) 4:30am 5:18am eGFR calculation value obtained using the [facility] Quadratic (MCQ) equation. The reportable reference range is recommended to be greater than 60 ml/min/1.73m. This is an estimation of the patient's GFR and clinical correlation is recommended. This eGFR calculation does not account for race. This result may differ from other equations available. Calcium Level 6.6 mg/dL L 8.9-10.3 03/01/17 03/01/17 4:30am 5:18am Glucose 103 mg/dL 70-109 02/28/17 03/01/17 (Fingerstick) 8:52pm 3:35am Albumin 3.2 g/dL L 3.5-5.0 02/28/17 02/28/17 4:09am 5:45am Total Bilirubin 0.5 mg/dL 0.3-1.2 02/28/17 02/28/17 4:09am 5:45am Alkaline 39 IU/L 32-91 02/28/17 02/28/17 Phosphatase 4:09am 5:45am Total Protein 6.1 g/dL # L 6.5-8.1 02/28/17 02/28/17 4:09am 5:45am Alanine 17 IU/L 7-55 02/28/17 02/28/17 Aminotransferase 4:09am 5:45am (ALT/SGPT) Aspartate Amino 36 IU/L 15-41 02/28/17 02/28/17 Transf 4:09am 5:45am (AST/SGOT) Globulin 2.9 g/dL 2.3-3.5 02/28/17 02/28/17 4:09am 5:45am Albumin/Globulin 1.1 L 1.2-2.2 02/28/17 02/28/17 Ratio 4:09am 5:45am Thyroid 1.16 uIU/mL 0.34-5.6 02/28/17 02/28/17 Stimulating 4:09am 5:45am Hormone (TSH) Urine Color YELLOW YELLOW 02/27/17 02/27/17 2:59am 3:03am Urine Appearance HAZY A CLEAR 02/27/17 02/27/17 2:59am 3:03am Urine Glucose NEGATIVE mg/dL NEGATIVE 02/27/17 02/27/17 2:59am 3:03am Urine Bilirubin NEGATIVE NEGATIVE 02/27/17 02/27/17 2:59am 3:03am Urine Ketones NEGATIVE NEGATIVE 02/27/17 02/27/17 2:59am 3:03am Urine Specific 1.015 1.002-1.03 02/27/17 02/27/17 [place] 0 2:59am 3:03am Urine Blood MODERATE A NEGATIVE 02/27/17 02/27/17 2:59am 3:03am Urine pH 7.5 4.5-8.0 02/27/17 02/27/17 2:59am 3:03am Urine Protein TRACE mg/dL A NEGATIVE 02/27/17 02/27/17 2:59am 3:03am Urine 0.2 E.U./d 0.2 02/27/17 02/27/17 Urobilinogen L 2:59am 3:03am Urine Nitrite POSITIVE A NEGATIVE 02/27/17 02/27/17 2:59am 3:03am Urine Leukocyte MODERATE A NEGATIVE 02/27/17 02/27/17 Esterase 2:59am 3:03am Urine YES NO 02/27/17 02/27/17 Microscopic 2:59am 3:03am Indicated Urine RBC 3-5 /hpf A 0-2 02/27/17 02/27/17 2:59am 3:08am Urine WBC 15-30 /hpf A 0-2 02/27/17 02/27/17 "Urine Culture 2:59am 3:08am test was reflexed and added to this specimen" Urine Epithelial 3-5 /hpf A 0-2 02/27/17 02/27/17 Cells 2:59am 3:08am Urine Bacteria 2+ /hpf A NEG 02/27/17 02/27/17 "Urine Culture 2:59am 3:08am test was reflexed and added to this specimen" N/A CALCULATE 02/27/17 02/27/17 CORONARY HEART DISEASE (CHD) RISK FACTORS: BELOW 2:41am 11:12am +1, Age (y): Men, >45 Women, >55 or Premature Menopause Without Estrogen Therapy +1, Family History of Premature CHD +1, Current Cigarette Smoking +1, Hypertension +1, Low HDL-C: <40 mg/dL -1, High HDL-C: 60 mg/dL or More Total RFs CHD Risk Equivalents (REq): Diabetes Other Forms of Atherosclerotic Disease Lipid testing of hospitalized patients may be inaccurate due to fluctuations from the patients normal metabolic state. Accurate triglyceride and LDL testing requires a fasting specimen. If non-fasting cholesterol > xm=085 mg/dL or HDL is < 40 mg/dL, fasting lipid panel is recommended. Repeat testing recommended prior to treatment. Desirable Levels Cholesterol 192 mg/dL 0-200 02/27/17 02/27/17 Level 2:41am 11:45am Triglycerides 43 mg/dL 10-150 02/27/17 02/27/17 Normal triglycerides: <150 mg/dL Level 2:41am 11:45am Borderline-high triglycerides: 150-199 mg/dL High triglycerides: 200-499 mg/dL Very high triglycerides: > rv=889 mg/dL HDL Cholesterol 97 mg/dL 40-130 02/27/17 02/27/17 2:41am 11:45am N/A 2.0 0.0-5.0 02/27/17 02/27/17 2:41am 11:45am LDL Cholesterol 86 mg/dL 0-130 02/27/17 02/27/17 *LDL Cholesterol < 130 mg/dL, No CHD or CHD Risk Equivalent (Measured) 2:41am 11:45am <100 mg/dL, With CHD or CHD Risk Equivalent LDL Cholesterol Therapeutic Goal: 100 mg/dL or Less if CHD or CHD Risk Equivalent Present <130 mg/dL if No CHD or REq; 2 or more Risk Factors <160 mg/dL if No CHD or REq; 0-1 Risk Factors Reference: ATP III, HENOK, 285:33, 5284-43, 2001. Lactic Acid 1.0 mmol/L 0.5-2.0 02/27/17 02/27/17 Level 2:41am 3:00am Hemoglobin A1c 5.0 % 4.0-6.0 02/27/17 02/27/17 Elevated levels of HbA1c suggest the need for more Percent 2:41am 11:38am aggresssive treatment of glycemia. The [employer] recommends that a primary goal of therapy should be a HbA1c of <7% and that physicians should reevaluate the treatment regimen in patients with HbA1c values consistently >8%. N/A 98 mg/dL 02/27/17 02/27/17 A1C Result% Estimated Avg.Glucose ( EAG) 2:41am 11:38am 6.0% 126 mg/dL 6.5% 140 mg/dL 7.0% 154 mg/dL 7.5% 169 mg/dL 8.0% 183 mg/dL 8.5% 197 mg/dL 9.0% 212 mg/dL 9.5% 226 mg/dL 10.0% 240 mg/dL Reference: Fox et al, Diabetes Care 31: 1437, 2008. Troponin I 0.02 ng/mL 0.00-0.03 02/27/17 02/27/17 2:41am 3:07am Troponin I-Interpretation Reference : <0.03 ng/mL NEGATIVE 0.04 - 0.49 ng/mL EQUIVOCAL =OR > 0.5 ng/mL CONSISTENT WITH ACUTE MYOCARDIAL INJURY 98% of confirmed AMI patients will have at least one value in a set or serial specimens >0.50 ng/ml. 99% of normals are between 0.0 - 0.10 ng/ml. Serial samples on a patient that are all <0.10 ng/ml effectively rules out AMI. Persistently increased troponin I values that are above the upper limit of normal but below the threshold for AMI indicate mycardial injury but not necessarily an ischemic mechanism of injury. Troponin Important Points 1. Troponin is specific for myocardial injury but not for AMI. Elevated troponin levels above the upper limit of normal but below the AMI cutoff may be present in cardiac injury other then AMI and represent some degree of risk. 2. Elevated troponin levels inconsistent with patient history or clinical condition should be considered a sign to investigate for other cardiac conditions. 3. Serial sampling is critical for accurate diagnosis. Microbiology Results Procedure Source Result Collection Date/Time Result Date/Time Urine Culture Urine,Random Escherichia Coli 02/27/17 3:08am 03/01/17 6:34am Procedures No Known History of Procedures. Encounters Encounter Location Arrival/Admit Date Discharge/Depart Date Attending Provider Discharged [place] 02/27/17 2:05am 03/01/17 12:04pm [facility] Encounter Diagnosis Onset Date Dizziness and giddiness UTI (urinary tract infection) Fall
== END 2017-03-17 16:00 | disposition swing bed (61) | DRG 481 ==
LOC: ERS 19:17 → SURG A 21:41 → 2NO 03-12 15:07
PROVIDERS: ADMIT Surgery; ATTEND Surgery
PROC: 0QH604Z Insertion of Internal Fixation Device into Right Upper Femur, Open Approach (ICD-10-PCS; principal; 2017-03-11)
PROC: 30233N1 Transfusion of Nonautologous Red Blood Cells into Peripheral Vein, Percutaneous Approach (ICD-10-PCS; 2017-03-12)
DX: S72.141A Displaced intertrochanteric fracture of right femur, initial encounter for closed fracture (principal); I48.92 Unspecified atrial flutter; F03.90 Unspecified dementia, unspecified severity, without behavioral disturbance, psychotic disturbance, mood disturbance, and anxiety; I47.1 Supraventricular tachycardia; D62 Acute posthemorrhagic anemia; E03.9 Hypothyroidism, unspecified; W01.0XXA Fall on same level from slipping, tripping and stumbling without subsequent striking against object, initial encounter; Y92.039 Unspecified place in apartment as the place of occurrence of the external cause; Z79.82 Long term (current) use of aspirin
CPT/HCPCS: 36415; 36430; 51702; 71010; 72170; 76001; 80048; 80053; 82553; 83735; 83880; 84100; 84436; 84443; 84481; 84484; 85014; 85018; 85025; 85610; 85730; 86850; 86900; 86901; 93005; 93010; 96374; 96375; A4216; C1713; C1769; G8978-GP-CK; G8978-GP-CM; G8979-GP-CI; G8979-GP-CK; G8987-GO-CK; G8988-GO-CI; J0690; J1885; J2001; J2270; J2704; J3010; J3475; J7050; P9016; S0179

== ENCOUNTER 2017-04-22 20:25 | Inpatient (IN) | payer MEDICARE ==
[2017-04-22 21:10] LABS: Bilirubin Negative (Negative); Blood, Urine Trace (Negative); Glucose, Urine (Dipstick) Negative (Negative); Ketone, Urine Negative (Negative); Nitrite Negative (Negative); Protein, Urine (Dipstick) 30 mg/dL (Neg-Trace); Urobilinogen 0.2 mg/dL (0.2-1.0)
[2017-04-22 21:12] LABS: Bacteria/HPF None Seen HPF (None Seen); Hyaline Casts/LPF 0-3 HYALINE CAST LPF (0-3 Hyaline); Squamous Epithelial 0-3 HPF (0-3); WBC/HPF None Seen HPF (0-3)
[2017-04-22 21:31] LABS: #Lymphocytes 0.8 thou/uL (1.20-3.40); #Monocytes 0.9 thou/uL (0.11-0.59); #Neutrophils 13.4 thou/uL (1.40-6.50); %Eosinophils 0.1 % (0.0-10.0); %Lymphocytes 5.5 % (21.0-51.0); %Monocytes 5.9 % (0.0-10.0); Hematocrit 35.4 % (36.0-47.0); White Blood Cell (WBC) Count 15.2 thou/uL (4.8-10.8)
[2017-04-22 21:39] LABS: PTT 26.7 SEC (22.9-36.1); Prothrombin Time 15.9 SEC (12.0-14.7)
--- NOTE | 2017-04-22 21:39 | RAD ---
CHEST ONE VIEW 04/22/17 HISTORY: Fever. Cough. COMPARISON: 03/12/17. FINDINGS: The cardiac silhouette remains magnified and enlarged. The lungs are hyperinflated. Mediastinum is mi dline. Left hemidiaphragm is no longer visible. Upper lobes are free of infiltrate. IMPRESSION: In a setting of fever, opacity of the left base must be views with suspicion for possible left basila r pneumonia. Clinical correlation regarding other signs and symptoms of left basilar pneumonitis is r equired. Close radiographic followup with upright PA and lateral views of the chest is suggested when patient can undergo that exam. POS: [facility]
[2017-04-22 21:50] LABS: ALT (SGPT) 11 U/L (8-55); AST (SGOT) 19 U/L (5-34); Alkaline Phosphatase 118 U/L (40-150); Anion Gap 12 mmol/L (10-20); BUN (Urea Nitrogen) 13 mg/dL (9.8-20.1); Bilirubin, Total 0.6 mg/dL (0.2-1.2); CK (CPK) 61 U/L (29-168); Calc. Creatinine Clearance 0 mL/min (70-130); Calcium 7.2 mg/dL (7.8-10.44); Carbon Dioxide 20 mmol/L (23-31); Chloride 109 mmol/L (98-107); Estimated GFR-MDRD 80; Globulin 2.8 g/dL (2.4-3.5); Magnesium 1.5 mg/dL (1.6-2.6); Protein, Total 5.9 g/dL (6.0-8.3)
[2017-04-22 21:52] LABS: Lactic Acid - Sepsis 1.3 mmol/L (0.5-2.2); Troponin I 0.024 ng/mL (< 0.028)
--- NOTE | 2017-04-22 22:04 | CT ---
CT HEAD NONCONTRAST 04/22/17 HISTORY: Altered mental status. COMPARISON: 03/30/17 FINDINGS: There is no evidence of acute intracranial hemorrhage or infarct. Diffuse cortical atrophy and chroni c ischemic small vessel disease are similar in appearance to the previous exam. Dystrophic calcificat ion is apparent within the basal ganglia. The visualized paranasal sinuses remain well aerated. IMPRESSION: Chronic type findings are stable. No acute intracranial abnormalities are demonstrated on noncontrast CT head. POS: [facility]
--- NOTE | 2017-04-22 22:14 | RAD ---
LUMBAR SPINE THREE VIEWS: 04/22/17 HISTORY: Low back pain. FINDINGS: There are five lumbar type vertebrae. Pedicles are intact. Leftward convexed rotatory scoliotic curva ture is apparent on the frontal view. Vertebral body heights and AP alignment are maintained. Osseous structures are demineralized. There is mild osteophytosis. Prominent calcifications present within t he splenic artery. IMPRESSION: 1. Lumbar spondylosis. No evidence of compression fracture. 2. Osteoporosis. 3. Atherosclerosis. POS: [facility]
--- NOTE | 2017-04-22 22:15 | RAD ---
AP PELVIS ONE VIEW: 04/22/17 HISTORY: Pelvic pain. FINDINGS: Sacrum is predominantly obscured by bowel content. No displaced fractures are evident. Pelvic rings a re intact. Internal fixation of the right hip is visible. Osseous structures are demineralization. IMPRESSION: 1. No acute fractures are evident. 2. Osteoporosis. POS: [facility]
[2017-04-22] MEDS ORDERED: Magnesium Sulfate 2 GM/100 ML BAG ONE (23:21)
[2017-04-23 06:27] LABS: ALT (SGPT) 10 U/L (8-55); AST (SGOT) 17 U/L (5-34); Alkaline Phosphatase 105 U/L (40-150); Anion Gap 8 mmol/L (10-20); BUN (Urea Nitrogen) 12 mg/dL (9.8-20.1); Bilirubin, Total 0.6 mg/dL (0.2-1.2); Calc. Creatinine Clearance 40 mL/min (70-130); Calcium 7.5 mg/dL (7.8-10.44); Carbon Dioxide 23 mmol/L (23-31); Chloride 109 mmol/L (98-107); Estimated GFR-MDRD 88; Globulin 2.9 g/dL (2.4-3.5); Protein, Total 5.8 g/dL (6.0-8.3)
[2017-04-23] MEDS ORDERED: cefTRIAXone\\ROCEPHIN 1 GM in Sodium Chloride 0.9% 100 ML IVPB SCH (12:45)
[2017-04-23] MEDS: Acetaminophen 500 MG TAB PO SCH ×2 (13:54→19:48)
[2017-04-23] MEDS: cefTRIAXone\\ROCEPHIN 1 GM, Syringe 0.4 ML in Sterile Water 9.6 ML SLOW IVP SCH (13:54)
[2017-04-23] MEDS: traMADol HCl 50 MG TAB PO PRN (13:55)
[2017-04-23] MEDS: Flecainide 50 MG TAB PO SCH (19:48)
[2017-04-23] MEDS: Mirtazapine 15 MG TAB PO SCH (19:49)
--- NOTE | 2017-04-23 20:52 | HP ---
HISTORY OF PRESENT ILLNESS: Mrs. Tangela Stewart is a very pleasant 87-year-old female tr eated by Dr. Salvatore Garzon, who is status post right hip fracture with ORIF on 03/12/2017 and who has been residing in her apartment behind her granddaughter, Debi Elliott (at ) an d is reportedly (by Ms. Elliott) to be in her usual state of health 1 day ago in the morning, but prog ressively as the day progressed, she was noted to have some alteration in her mental status and then was subsequently noted to have a subjective fever which was then checked with a thermometer and revea led to be 100.1 degrees. Ms. Elliott indicates that she went to see her mother and uncharacteristical ly in her apartment the door was opened, but the heater was on. Further she was seen to be slumped i n her chair and just" did not look right." She was less responsive, had slow mentation as evidenced by taking longer to respond verbally to things that were being discussed. While she had some objects such as a pill in her left hand, she was not able to grasp it from her right to swallow it. She was further noted to have trouble rising from a sitting position, although she had previously been able to do that without apparent difficulty. Of note, she had a presumed fall approximately a week and a half ago at the home setting as she "woke up on the floor." (note this history is taken from the tiarra ent who herself who has some air of reliability, her granddaughter, Ms. Elliott and the medical record s found to [facility] database. PHYSICAL EXAMINATION: GENERAL: Alert, active, with nonlabored breathing and is in no acute distress. HEENT: Head is normocephalic, atraumatic. She is greatly sunken in eyes bilaterally. Oral cavity s hows upper dentures. LUNGS: Clear to auscultation bilaterally. CARDIAC: Regular rate and rhythm with a 2/6 systolic murmur. ABDOMEN: Soft, nontender. SKIN: Pale, warm and dry. PAST MEDICAL HISTORY: 1. Fall with right hip fracture on 03/12/2017, status post ORIF repair. 2. Clinical diagnosis of osteoporosis. 3. Breast area tumors, although not cancer, with history of bilateral mastectomy. 4. Hypothyroidism, status post thyroidectomy. 5. History of SVT and paroxysmal atrial fibrillation, seen by Cardiology, treated with flecainide. PAST SURGICAL HISTORY: 1. Hip surgery as supposed to above. 2. Bilateral mastectomy. 3. Thyroidectomy. 4. Bladder surgery. 5. Hysterectomy. 6. Right knee surgery. CURRENT MEDICATIONS: Include Megace 20 mg orally 3 times daily, levothyroxine 75 mcg daily, aspirin 325 mg daily, metoprolol 25 mg daily, flecainide 125 mg orally twice daily, iron 65 mg once daily. ALLERGIES: No known drug allergies. SOCIAL HISTORY: The patient lives in an apartment behind her mother and her grandmother in [facility]. She denies tobacco, alcohol, or illicit drugs. She is a fairly recent . She originally pickard d 5 children, but two have and her denominational preference is Orthodox. LABORATORY AND X-RAY FINDINGS: Pelvic CT scan is essentially normal. Lumbar x-ray shows no acute fr actures. Brain CT shows some chronic ischemic white matter changes. Chest x-ray shows consolidation in the right lower base consistent with pneumonia. White blood cell count 15, hemoglobin 11.5, BUN 12, creatinine 0.64, carbon dioxide 102. Albumin 2.9. Urine with trace blood and positive urine pro tein, otherwise essentially negative. Sodium 138, potassium 3.4. ASSESSMENT: 1. Right lower lobe pneumonia without respiratory symptoms, currently on empiric antibiotic therapy. 2. Altered mental status. The patient may well be back to her baseline at this time. Altered menta l status appears to have been remedied by current therapy. 3. Paroxysmal atrial fibrillation. 4. History of anxiety. 5. History of depression. 6. History of benign breast tumor status post bilateral mastectomy. PLAN: Empiric antibiotic therapy. Encourage fluid accumulation, will anticipate a short course in [facility].
[2017-04-24] MEDS: traMADol HCl 50 MG TAB PO PRN (04:50)
[2017-04-24 08:11] LABS: #Eosinphils 0.2 thou/uL (0.0-0.7); #Lymphocytes 0.9 thou/uL (1.20-3.40); #Monocytes 0.6 thou/uL (0.11-0.59); #Neutrophils 6.4 thou/uL (1.40-6.50); %Eosinophils 2.1 % (0.0-10.0); %Lymphocytes 10.9 % (21.0-51.0); %Monocytes 7.9 % (0.0-10.0); Hematocrit 38.9 % (36.0-47.0); Mean Platelet Volume 5.8 fL (7.4-10.4); White Blood Cell (WBC) Count 8.1 thou/uL (4.8-10.8)
[2017-04-24] MEDS ORDERED: Cepastat Lozenges 1 LOZ PO PRN (08:13)
[2017-04-24 08:30] LABS: Anion Gap 11 mmol/L (10-20); BUN (Urea Nitrogen) 10 mg/dL (9.8-20.1); Calc. Creatinine Clearance 40 mL/min (70-130); Calcium 7.9 mg/dL (7.8-10.44); Carbon Dioxide 23 mmol/L (23-31); Chloride 110 mmol/L (98-107); Estimated GFR-MDRD 88
--- NOTE | 2017-04-24 08:33 | PRG ---
DATE OF SERVICE: 04/24/2017 SUBJECTIVE: The patient is feeling some better. She denies cough, denies shortness of breath. She does admit to sore throat, still feeling weak. She has not been out of bed since yesterday. Her appetite is okay except for pain when swallowing. Daughter reports that she has been falling frequently at home OBJECTIVE: VITAL SIGNS: Temperature 98.0, T-max of 98.4, pulse of 98, respirations 16, blood pressure 184/79, pulse ox is 98% on room air. GENERAL: She is awake and alert, in no acute distress. Speech is clear. HEENT: Mucosa is moist. Throat is clear. NECK: Supple. HEART: Regular rate and rhythm. LUNGS: Clear with no wheeze, rales or rhonchi. ABDOMEN: Soft. EXTREMITIES: With no edema. LABORATORY DATA AND X-RAY FINDINGS: White blood cell count 8100 down from 15, 200, hemoglobin and hematocrit are 12.8 and 38.9, platelets of 195. Chemistry panel is pending. Chest x-ray from 04/22/2017 reveals questionable left basilar infiltrate. ASSESSMENT AND PLAN: 1. This is an 87-year-old female patient with recent hospitalization for hip fracture, admitted for weakness and possible basilar infiltrate and she has improved on antibiotics. She appears to be back at her baseline. We will discuss with family as far as her ability to go home. We will repeat chest x- ray and labs. Continue antibiotics at this time. 2. Hypertension. We will continue oral medications as well as add clonidine p.r.n. 3. Frequent falls. Consider neuro eval. will check carotid doppler and brain imaging. DISPOSITION: Anticipate home soon and increase activity. [facility]
[2017-04-24] MEDS: Acetaminophen 500 MG TAB PO SCH ×3 (09:23→20:17)
[2017-04-24] MEDS: Levothyroxine Sodium 75 MCG TAB PO SCH (09:23)
[2017-04-24] MEDS: Ferrous Sulfate 325 MG TAB PO SCH (09:23)
[2017-04-24] MEDS: Aspirin 325 mg Enteric Coated Tablet PO SCH (09:23)
[2017-04-24] MEDS: Flecainide 50 MG TAB PO SCH ×2 (09:23→20:17)
--- NOTE | 2017-04-24 12:12 | RAD ---
CHEST 2 VIEWS: Date: 04/24/17 COMPARISON: 04/22/17. FINDINGS: Normal cardiac silhouette. Pulmonary vessels and hilum are normal. The lungs are hyperinflated. Bibas ilar pleural and parenchymal changes have progressed when compared to the prior examination. New righ t-sided pleural and parenchymal changes. Chronic changes in the lung apices. There is diffuse bone de mineralization. Extensive vascular calcifications are identified. IMPRESSION: Worsening bibasilar pleural and parenchymal changes. Continued surveillance. POS: [facility]
--- NOTE | 2017-04-24 13:58 | PQF ---
CLINICAL DOCUMENTATION IMPROVEMENT CLARIFICATION FORM: ICD-10 Updated PLEASE DO AN ADDENDUM TO THE PROGRESS NOTE WITH ANY DOCUMENTATION UPDATES OR ADDITIONS AND CARRY THROUGH TO DC SUMMARY. THANK YOU. DATE: 04/24 ATTN: DR. iGgi DAVIS Please exercise your independent, professional judgment in responding to the clarification form. Clinical indicators are provided on the bottom of this form for your review Please check appropriate box(s): [ ] Encephalopathy: Type: [ ] Acute [ ] Subacute Etiology: [ ] Metabolic [ ] Toxic [ ] Unspecified [ ] in the setting of underlying dementia [ ] Other (please specify) [ x] Transient Alteration of Awareness [ ] Other diagnosis [ ] Unable to determine For continuity of documentation, please document condition throughout progress notes and discharge summary. Thank You. CLINICAL INDICATORS - SIGNS / SYMPTOMS / LABS ER PRESENTATION 04/22: FAMILY REPORTS INCREASING FEVER OVER LAST SEVERAL DAYS W /TEMP TODAY 101.8 ER PHYSICIAN DOCUMENTATION 04/22: PT PRESENTS FOR EVALUATION OF AMS. FAMILY STATES PT HAD A FEVER TODAY OF 100.9 RECEIVED 2L NS EN ROUTE PER EMS ER PHYSICIAN FINAL DIAGNOSES 04/22: AMS, ADD'L: PNEUMONIA ATTENDING H&P DOCUMENTATION 04/22: ASSESSMENT: 2. ALTERED MENTAL STATUS. THE PT MAY WELL BE BACK TO HER BASELINE AT THIS TIME RISK FACTORS: RUL PNEUMONIA ADVANCED AGE (87) TREATMENTS: IV ANTIBIOTIC (ROCEPHIN 04/22 - PRESENT) SUPPLEMENTAL OXYGEN (04/22 - PRESENT) THANK YOU! Grazyna (This form is maintained as a part of the permanent medical record) 2015 [employer]. All Rights Reserved Grazyna Tyler RN, BSN [email or web address] Office: [phone] [facility]ITAL[facility]ar[facility]
--- NOTE | 2017-04-24 14:08 | PQF ---
CLINICAL DOCUMENTATION IMPROVEMENT CLARIFICATION FORM: ICD-10 Updated PLEASE DO AN ADDENDUM TO THE PROGRESS NOTE WITH ANY DOCUMENTATION UPDATES OR ADDITIONS AND CARRY THROUGH TO DC SUMMARY. THANK YOU. DATE: 04/24 ATTN: DR. Gigi DAVIS Please exercise your independent, professional judgment in responding to the clarification form. Clinical indicators are provided on the bottom of this form for your review Please check appropriate box(s): [ ] Pneumonia secondary to (specify organism / underlying disease) [ x] Simple Pneumonia (community acquired - nosocomial) [ ] Bronchopneumonia [ ] Pneumonia of unknown etiology [ ] Other diagnosis [ ] Unable to determine For continuity of documentation, please document condition throughout progress notes and discharge summary. Thank You. CLINICAL INDICATORS - SIGNS / SYMPTOMS / LABS ER PHYSICIAN DIAGNOSIS DOCUMENTATION 04/22: AMS, PNEUMONIA ATTENDING H&P DOCUMENTATION 04/22: RLL PNEUMONIA W/O RESPIRATORY SYMPTOMS, CURRENTLY ON EMPIRIC ANTIBIOTIC THERAPY ATTENDING PN 04/24: ASSESSMENT/PLAN: 1. ...ADMITTED FOR WEAKNESS & POSSIBLE BASILAR INFILTRATE & SHE HAS IMPROVED ON ANTIBIOTICS CXR 04/22: IMPRESSION: IN A SETTING OF FEVER, OPACITY OF THE LEFT BASE MUST BE VIEWS WITH SUSPICION FOR POSSIBLE L BASILAR PNEUMONIA RISK FACTORS: FEVER AT HOME ADVANCED AGE (87) TREATMENTS: IV ANTIBIOTIC (ROCEPHIN 04/22 - PRESENT) SUPPLEMENTAL OXYGEN THANK YOU! Grazyna (This form is maintained as a part of the permanent medical record) 2014 [employer]. All Rights Reserved Grazyna Tyler RN, BSN [email or web address] Office: [phone] [facility]
[2017-04-24 14:13] VITALS: BMI 14.7
[2017-04-24] MEDS: cefTRIAXone\\ROCEPHIN 1 GM, Syringe 0.4 ML in Sterile Water 9.6 ML SLOW IVP SCH (15:09)
[2017-04-24] MEDS: Mirtazapine 15 MG TAB PO SCH (20:18)
[2017-04-25] MEDS: cloNIDine 0.1 MG TAB PO PRN (00:09)
[2017-04-25] MEDS ORDERED: Gadobenate Dimeglumine 529 MG/1 ML (20ML VIAL) ONE (07:57)
[2017-04-25] MEDS: Flecainide 50 MG TAB PO SCH ×2 (08:03→20:38)
[2017-04-25] MEDS: Acetaminophen 500 MG TAB PO SCH ×3 (08:05→20:38)
[2017-04-25] MEDS: Ferrous Sulfate 325 MG TAB PO SCH (08:06)
[2017-04-25] MEDS: Aspirin 325 mg Enteric Coated Tablet PO SCH (08:06)
[2017-04-25] MEDS: Levothyroxine Sodium 75 MCG TAB PO SCH (08:06)
--- NOTE | 2017-04-25 08:28 | PRG ---
DATE OF SERVICE: 04/25/2017 SUBJECTIVE: The patient is feeling some better. She continues to feel weak. She has only been out of bed with a walking program yesterday x1. She has had a good appetite. Her daughter again reports that she has been feeling more weak since her hip fracture. She was doing better with inpatient sonia abilitation, but insurance would not pay for anymore and she was discharged home prior to this episod e happening. She denies cough, denies chest pain, denies shortness of breath, denies fevers. OBJECTIVE: VITAL SIGNS: Temperature 98.0, pulse of 65, respirations 20, blood pressure 135/77, pulse ox is 98% on room air. GENERAL: She is awake and alert. She is thin and cachectic. HEENT: Mucosa is moist. NECK: Supple. HEART: Regular rate and rhythm. LUNGS: Decreased breath sounds. No wheezes, rales or rhonchi. ABDOMEN: Soft. EXTREMITIES: With no edema. NEUROLOGIC: Cranial nerves II-through XII are intact. She moves all extremities. LABORATORY DATA AND X-RAY FINDINGS: Reviewed from yesterday, sodium 141, potassium 3.2, chloride 110 , CO2 of 23, BUN and creatinine are 10 and 0.64. Chest x-ray yesterday revealed persistent opacities in the bibasilar pleural and parenchymal areas. ASSESSMENT AND PLAN: This is an 87-year-old female patient admitted with weakness and mental status change, found to have acute pneumonia, which seems to have improved with antibiotics. Clinically, we will continue antibiotics at this time for the pneumonia. 1. Hypertension is stable. 2. Frequent falls, syncope and mental status change. We will check carotid Dopplers and brain MRI. 3. Weakness and deconditioning. We will consult PT, OT. 4. Pneumonia. We will check a swallow status with speech therapy evaluation.
--- NOTE | 2017-04-25 10:52 | ULT ---
CAROTID ULTRASOUND WITH DOPPLER: Date: 04/25/17 HISTORY: Confusion and syncope. COMPARISON: None. TECHNIQUE: Galindo scale, color flow, Doppler imaging, and spectral waveform analysis performed in the carotid and vertebral arteries. FINDINGS: RIGHT CAROTID: Minimal atherosclerotic disease. There is some calcification in the right carotid bifurcation. Intima l thickness of the common carotid artery is 0.08 cm. Peak systolic velocity of the common carotid art mario was 72.8 cm/second. Peak systolic velocity of internal carotid artery is 24.6 cm/second. Systolic ICA/CCA ratio is 1.02. LEFT CAROTID: Atherosclerotic disease in the left carotid bifurcation. Intimal thickness of the common carotid is 0 .11 cm. Peak systolic velocity of the common carotid artery is 79.8 cm/sec. Peak systolic velocity of the internal carotid artery is 96.8 cm/sec. Systolic ICA/CCA ratio is 1.21. Antegrade flow in both vertebral arteries. IMPRESSION: No sonographic evidence of hemodynamically significant stenosis. POS: [facility]
--- NOTE | 2017-04-25 14:47 | MRI ---
MRI BRAIN WITH AND WITHOUT CONTRAST: Technique: Multiplanar, multisequential imaging of brain obtained. Post contrast images obtained afte r administration of 9 cc of MultiHance IV. History: Mental status change. Syncope. Confusion. Correlation: CT scan, 04-22-17. FINDINGS: There is moderate cortical atrophy. There are moderate chronic ischemic white matter changes seen in both cerebral hemispheres. No evidence of restricted diffusion. There is no evidence of acute infarct . No mass or edema. No abnormal enhancement. The intracranial internal carotid arteries, proximal cerebral arteries, and basilar arteries show junior w voids. Signal in the mastoid air cells may represent mild mucosal edema. The maxillary sinuses appear clear. IMPRESSION: 1. Moderate cortical atrophy. 2. Moderate chronic ischemic white matter change. 3. No evidence of acute process. POS: [facility]
[2017-04-25] MEDS: cefTRIAXone\\ROCEPHIN 1 GM, Syringe 0.4 ML in Sterile Water 9.6 ML SLOW IVP SCH (14:52)
[2017-04-25] MEDS: Mirtazapine 15 MG TAB PO SCH (20:38)
[2017-04-26 04:43] LABS: Anion Gap 11 mmol/L (10-20); BUN (Urea Nitrogen) 23 mg/dL (9.8-20.1); Calc. Creatinine Clearance 40 mL/min (70-130); Calcium 8.1 mg/dL (7.8-10.44); Carbon Dioxide 22 mmol/L (23-31); Chloride 109 mmol/L (98-107); Estimated GFR-MDRD 88
[2017-04-26] MEDS: cloNIDine 0.1 MG TAB PO PRN (06:42)
--- NOTE | 2017-04-26 08:13 | PRG ---
DATE OF SERVICE: 04/26/2017 SUBJECTIVE: The patient continues to feel weak. She is having a hard time getting out of bed, not cooperating with therapy very much. She is continuing to eat and drink, but has a poor appetite. Denies chest pain or shortness of breath. Denies pain except when she is moving around. OBJECTIVE: VITAL SIGNS: Temperature 97.2, pulse of 76, respirations 16, pulse ox is 98% on room air, blood pressure 180/82. GENERAL: She is awake and alert, in no acute distress, but lethargic. She answers questions appropriately. HEENT: Mucosa is dry. NECK: Supple. HEART: Regular rate and rhythm. LUNGS: Decreased breath sounds throughout. No wheeze, rales, or rhonchi. ABDOMEN: Flat, soft. EXTREMITIES: No edema. LABORATORY DATA: Sodium 138, potassium 3.5, chloride 109, CO2 of 22, BUN and creatinine 23 and 0.64. Serum glucose of 74. Albumin yesterday was 2.9. Thyroid was normal. Urine culture and blood cultures have been negative. Chest x-ray from 04/24/2017 revealed worsening bibasilar pleural and parenchymal changes. A recommended followup brain MRI showed age-related atrophy as well as moderate chronic ischemic white matter changes. Bilateral carotid Dopplers revealed no significant stenosis. ASSESSMENT AND PLAN: This is an 87-year-old female patient admitted with, 1. Pneumonia. We will continue antibiotics for pneumonia and recheck a chest x -ray. She is a risk for aspiration pneumonia. 2. Hypertension. We will stop the beta kiki and adjust medicines for better control that might not cause increased fatigue. 3. Weakness and deconditioning, likely failing to thrive. Await speech therapy evaluation to rule out swallow dysfunction. Continue PT/OT, dietary for recommendations. I will restart IV fluids. 4. History of syncope. We will check another echocardiogram. [facility]
[2017-04-26] MEDS: Flecainide 50 MG TAB PO SCH ×2 (09:07→21:02)
[2017-04-26] MEDS: Levothyroxine Sodium 75 MCG TAB PO SCH (09:09)
[2017-04-26] MEDS: Aspirin 325 mg Enteric Coated Tablet PO SCH (09:09)
[2017-04-26] MEDS: Acetaminophen 500 MG TAB PO SCH ×3 (09:09→21:02)
[2017-04-26] MEDS: Ferrous Sulfate 325 MG TAB PO SCH (09:10)
--- NOTE | 2017-04-26 09:10 | RAD ---
PORTABLE CHEST: Comparison: 04-22-17, 04-24-17 History: Pneumonia. FINDINGS: Patient is rotated on this exam. Heart size is within normal limits. There is some persistent bluntin g to the left costophrenic angle. Chronic lung changes with biapical scarring again noted. The blunti ng to the right costophrenic angles has resolved. IMPRESSION: Persistent pleural changes in the left base which appear fairly stable as compared to the prior exam. Chronic lung changes are noted. POS: [facility]
[2017-04-26] MEDS: Potassium Chloride 10 MEQ, Admixture Fee 1 EACH in Dextrose 5 % And 0.9 % NaCl 1,000 ML IV SCH ×2 (09:37→23:07)
[2017-04-26] MEDS: cefTRIAXone\\ROCEPHIN 1 GM, Syringe 0.4 ML in Sterile Water 9.6 ML SLOW IVP SCH (14:41)
[2017-04-27 03:38] LABS: Bilirubin Negative (Negative); Blood, Urine Negative (Negative); Glucose, Urine (Dipstick) Negative (Negative); Ketone, Urine Negative (Negative); Nitrite Negative (Negative); Protein, Urine (Dipstick) Negative (Neg-Trace); Urobilinogen 0.2 mg/dL (0.2-1.0)
[2017-04-27 03:39] LABS: Bacteria/HPF None Seen HPF (None Seen); Hyaline Casts/LPF 0-3 HYALINE CAST LPF (0-3 Hyaline); Squamous Epithelial 0-3 HPF (0-3); WBC/HPF 0-3 HPF (0-3)
[2017-04-27 04:39] LABS: #Eosinphils 0.2 thou/uL (0.0-0.7); #Monocytes 0.5 thou/uL (0.11-0.59); #Neutrophils 6.6 thou/uL (1.40-6.50); %Basophils 0.2 % (0.0-1.0); %Eosinophils 2.3 % (0.0-10.0); %Lymphocytes 12.4 % (21.0-51.0); %Monocytes 5.9 % (0.0-10.0); Hematocrit 35.3 % (36.0-47.0); Mean Platelet Volume 5.9 fL (7.4-10.4); Red Blood Cell (RBC) Count 3.65 mill/uL (4.20-5.40); White Blood Cell (WBC) Count 8.3 thou/uL (4.8-10.8)
[2017-04-27 04:54] LABS: ALT (SGPT) 13 U/L (8-55); AST (SGOT) 19 U/L (5-34); Alkaline Phosphatase 95 U/L (40-150); Anion Gap 8 mmol/L (10-20); BUN (Urea Nitrogen) 15 mg/dL (9.8-20.1); Bilirubin, Total 0.3 mg/dL (0.2-1.2); Calc. Creatinine Clearance 45 mL/min (70-130); Calcium 7.7 mg/dL (7.8-10.44); Carbon Dioxide 23 mmol/L (23-31); Chloride 109 mmol/L (98-107); Estimated GFR-MDRD Greater than 90; Protein, Total 5.7 g/dL (6.0-8.3)
--- NOTE | 2017-04-27 08:06 | PRG ---
DATE OF SERVICE: 04/27/2017 SUBJECTIVE: The patient is feeling some better. She is more awake and alert possibly from stopping the Remeron. She answers questions appropriately. She admits to occasional choking on her foods. S he denies chest pain or palpitations. Denies shortness of breath at this time. She has been n.p.o. since yesterday. OBJECTIVE: VITAL SIGNS: Temperature 97.2, pulse is 76, respirations 16, blood pressure 172/82, pulse ox is 98% on room air. GENERAL: She is awake and alert. Speech is clear. NECK: Supple. HEENT: Mucosa is moist. HEART: Regular rate and rhythm. LUNGS: With decreased breath sounds. No wheeze, rales, or rhonchi. ABDOMEN: Scaphoid, soft, nontender, nondistended. EXTREMITIES: No clubbing, cyanosis, or edema. NEUROLOGIC: Cranial nerves II-XII are intact. Strength is 5/5 bilaterally. Sensation is intact pool aterally. LABORATORY DATA: White blood cell count 8300, hemoglobin and hematocrit 11.3 and 35.3, platelets of 199. Sodium 137, potassium 3.3, chloride 109, CO2 of 23, BUN and creatinine 15 and 0.57, serum gluco se of 88, calcium of 7.7, albumin of 2.7. Urinalysis only small leukocyte esterase. Modified barium swallow is pending. Bedside swallow evaluation by Speech Therapy was reported as abnormal with inab ility to appropriately swallow textures. ASSESSMENT AND PLAN: This is an 87-year-old female patient, admitted for weakness and found to have, 1. Lower lobe pneumonia. She appears to be improving with IV antibiotics. We will continue. She i s at risk for aspiration pneumonia. 2. Swallow dysfunction. Await modified barium swallow. Had a discussion with patient and she is ag reeable to PEG tube placement for feedings if she fails a barium swallow. I will consult GI if jami wang. 3. Weakness and deconditioning and failure to thrive. Again, awaiting conclusion of a swallow evalu ation and possibly will need a PEG tube for nutrition. Continue IV fluids at this time. 4. History of syncope. Awaiting echocardiogram report, possibly due to episodes of aspiration.
[2017-04-27] MEDS: Flecainide 50 MG TAB PO SCH ×2 (09:28→20:38)
[2017-04-27] MEDS: Levothyroxine Sodium 75 MCG TAB PO SCH (09:28)
[2017-04-27] MEDS: Aspirin 325 mg Enteric Coated Tablet PO SCH (09:28)
[2017-04-27] MEDS: Acetaminophen 500 MG TAB PO SCH ×3 (09:28→20:37)
[2017-04-27] MEDS: Ferrous Sulfate 325 MG TAB PO SCH (09:28)
[2017-04-27] MEDS: hydrALAZINE 20 MG/ML VIAL SLOW IVP PRN ×2 (10:24→20:38)
--- NOTE | 2017-04-27 11:14 | PQF ---
CLINICAL DOCUMENTATION IMPROVEMENT CLARIFICATION FORM: ICD-10 Updated PLEASE DO AN ADDENDUM TO THE PROGRESS NOTE WITH ANY DOCUMENTATION UPDATES OR ADDITIONS AND CARRY THROUGH TO DC SUMMARY. THANK YOU. Date: 04/27 ATTN: DR. Gigi DAVIS Please exercise your independent, professional judgment in responding to the clarification form. Clinical indicators are provided on the bottom of this form for your review Please check appropriate box(s): [ ] Protein Calorie Malnutrition: [ ] Mild [ x ] Moderate [ ] Severe [ ] Other Malnutrition (please specify) __ [ ] Other diagnosis [ ] Unable to determine CLINICAL INDICATORS - SIGNS / SYMPTOMS / LABS BMI: 14.7 PHYSICIAN H&P DOCUMENTATION 04/22: GREATLY SUNKEN EYES BILATERALLY PHYSICIAN PROGRESS NOTE 04/25: THIN AND CACHECTIC PHYSICIAN PROGRESS NOTE 04/26: CONTINUING TO EAT & DRINK, BUT HAS POOR APPETITE ; WEAKNESS & DECONDITIONING, LIKELY FAILURE TO THRIVE NUTRITION CONSULT DOCUMENTATION 04/24: SIGNIFICANT FAT LOSS TO ORBITAL REGION, MUSCLE WASTING TO TEMPORAL REGION +9% WEIGHT CHANGE IN 6 WEEKS UNDERWEIGHT R/T AGE EVIDENCED BY BMI 14.7 DESPITE REPORT OF GOOD APPETITE & SUPPLEMENT INTAKE SPEECH CONS DOCUMENTATION: PT REPORTS "SOMETIMES I COUGH/CHOKE AT HOME WHEN MY FOOD GOES THE WRONG WAY." PT APPEARS VERY FRAIL AND MALNOURISHED. 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 Grazyna (This form is maintained as a part of the permanent medical record) 2015 [employer]. All Rights Reserved Grazyna Tyler RN, BSN [email or web address] Office: [phone] [facility]
--- NOTE | 2017-04-27 13:24 | RAD ---
MODIFIED BARIUM SWALLOW: Date: 04/27/17 HISTORY: Dysphagia, oropharyngeal phase. Feeding difficulties. EXPOSURE: 0.63 mGy*cm^2. 2.2 minutes. FINDINGS: In the presence of a speech pathologist, the patient was administered thin liquid, nectar-thick, tess y-thick, and pudding consistencies. FINDINGS: There is penetration with the thin liquid and nectar-thick consistencies. There is penetration and as piration with the honey-thick and pudding consistencies. IMPRESSION: Refer to speech pathologist report for feeding recommendation. POS: [facility]
[2017-04-27] MEDS: cefTRIAXone\\ROCEPHIN 1 GM, Syringe 0.4 ML in Sterile Water 9.6 ML SLOW IVP SCH (14:55)
[2017-04-27] MEDS: Potassium Chloride 10 MEQ, Admixture Fee 1 EACH in Dextrose 5 % And 0.9 % NaCl 1,000 ML IV SCH (16:13)
--- NOTE | 2017-04-27 21:45 | CON ---
DATE OF CONSULTATION: 04/27/2017 HISTORY OF PRESENT ILLNESS: Patient is an 87-year-old female who presented with altered me ntal status. She was diagnosed with right lower lobe pneumonia. She underwent a swallowing study an d this showed some penetration and aspiration. Consultation as for placement of percutaneous endosco pic gastrostomy. Discussing this with her, she reports she is not sure if she wants to do this, she will need to discuss with her family. PAST MEDICAL HISTORY: Includes osteoporosis, hypothyroidism, SVT. PAST MEDICAL HISTORY: Includes hip surgery, mastectomy, thyroidectomy, bladder surgery, hysterectomy , knee surgery. MEDICATIONS: On admission include Megace 20 mg p.o. t.i.d., levothyroxine 75 mcg p.o. daily, aspirin 325 mg p.o. daily, metoprolol 25 mg p.o. daily, flecainide 125 mg p.o. b.i.d., iron 65 mg p.o. daily . ALLERGIES: No known allergies. SOCIAL HISTORY: She lives in apartment independently. She does not smoke or drink. FAMILY HISTORY: Negative for GI or liver disease. REVIEW OF SYSTEMS: Constitutional: No fever or chills. Positive for weight loss. Eyes: No blurred vision or double v ision. ENT: No sore throat or earaches. Cardiovascular: No chest pain or palpitations. Pulmonary : No shortness of breath, cough or wheezing. Gastrointestinal: See above. Genitourinary: No arash turia or dysuria. Musculoskeletal: Positive for generalized weakness. Skin: No rashes. Neurologi c: Positive for altered mental status, negative for seizure activity. PHYSICAL EXAMINATION: GENERAL: Shows severely cachectic female in no acute distress. VITAL SIGNS: Temperature 98.2, pulse 78, respiratory rate 16, blood pressure 167/65. HEENT: Shows poor dentition. NECK: Supple. CHEST: Clear. CARDIOVASCULAR: Regular rate and rhythm. ABDOMEN: Soft, nontender, without organomegaly or masses. RECTAL: Deferred. EXTREMITIES: Normal. NEUROLOGIC: Nonfocal. LABORATORY: Shows a hemoglobin of 11.3, hematocrit of 35.3. Chemistries significant for potassium 3 .3, chloride 109, albumin 27. ASSESSMENT: 1. Oropharyngeal dysphagia. 2. Malnutrition. RECOMMENDATIONS: 1. Percutaneous endoscopic gastrostomy when the patient agrees. The patient wants to discuss this w ith her family prior to proceeding as soon as she makes a decision, please let me know, and we will p roceed on with percutaneous endoscopic gastrostomy.
[2017-04-28] MEDS: Potassium Chloride 10 MEQ, Admixture Fee 1 EACH in Dextrose 5 % And 0.9 % NaCl 1,000 ML IV SCH (02:54)
[2017-04-28 06:08] LABS: Anion Gap 8 mmol/L (10-20); BUN (Urea Nitrogen) 10 mg/dL (9.8-20.1); Calc. Creatinine Clearance 45 mL/min (70-130); Carbon Dioxide 22 mmol/L (23-31); Chloride 110 mmol/L (98-107); Estimated GFR-MDRD Greater than 90
[2017-04-28] MEDS: Aspirin 325 mg Enteric Coated Tablet PO SCH (08:46)
[2017-04-28] MEDS: Ferrous Sulfate 325 MG TAB PO SCH (08:46)
[2017-04-28] MEDS: Levothyroxine Sodium 75 MCG TAB PO SCH (08:46)
[2017-04-28] MEDS: Acetaminophen 500 MG TAB PO SCH ×3 (08:47→19:36)
[2017-04-28] MEDS: Flecainide 50 MG TAB PO SCH ×2 (08:48→19:36)
--- NOTE | 2017-04-28 10:38 | DIS ---
DATE OF DISCHARGE: 04/28/2017 ADMISSION DIAGNOSES: 1. Right lower lobe pneumonia. 2. Altered mental state. 3. Failure to thrive. 4. Malnutrition. DISCHARGE DIAGNOSES: 1. Right lower lobe pneumonia, improving, likely aspiration pneumonia. 2. Swallow dysfunction with dysphagia. 3. Failure to thrive, improved. 4. Hypothyroidism. PROCEDURES: IV antibiotics, brain MRI and carotid Dopplers, speech therapy evaluation and modified b arium swallow. CONSULTATIONS: Dr. Galindo for GI. HOSPITAL COURSE: This is an 87-year-old female patient with a history of osteoporosis, hypothyroidis m, paroxysmal atrial fibrillation, recent right hip fracture in 02/2017 status post ORIF presented to the emergency department with fever, weakness, mental status change and being found on the floor by daughter, who presented to the emergency department and found to have a right lower lobe pneumonia. She had slow improvement during her hospitalization, but chest x-rays revealed resolution of her pneu monitis. She remained weak and had difficulty getting out of bed, difficulty with function. The fam monica was concerned about her increased weakness and frequent falls at home. A brain MRI and carotid D oppler were done to rule out CVA. A swallow evaluation was done to rule out aspiration and she faile d the swallow evaluation both bedside and the modified barium swallow. She was seen by Dr. Galindo to d david the option of a PEG tube placement and both she and the family declined that and she understoo d the risks of feeding at risk. Speech therapy followed up with her to give her instructions on how to swallow more safely, but she again declined a PEG tube placement at this time and wanted to go chintan e. She did improve with her strength. She was ambulating with physical therapy, able to move around better and get out of bed on her own. DISCHARGE PHYSICAL EXAMINATION: VITAL SIGNS: Temperature 97.3, pulse of 94, respirations 18, blood pressure 155/70, pulse ox is 98% on room air. GENERAL: She is awake and alert. Speech is clear. Mucosa is moist. NECK: Supple. HEART: Regular rate and rhythm with a 2/6 systolic ejection murmur. LUNGS: Clear but distant. No wheeze, rales or rhonchi. ABDOMEN: Soft. EXTREMITIES: With no edema. DISCHARGE LABORATORY DATA: White blood cell count down to 8.3, hemoglobin and hematocrit 11.3 and 35 .3, platelets 199. Sodium 136, potassium 3.5, chloride 110, CO2 22, BUN and creatinine 10 and 0.57. Serum glucose 89. Albumin was 2.7. DISCHARGE MEDICATIONS: Tylenol p.r.n., aspirin 325 mg daily, Omnicef 300 mg b.i.d. for 1 more week, Catapres 0.1 mg p.r.n. elevated blood pressure, iron sulfate 325 mg daily, flecainide 75 mg b.i.d., S ynthroid 75 mcg daily, tramadol 50 mg p.r.n. pain. FOLLOWUP INSTRUCTIONS: The patient to follow up in my office in 1 week. Home Health with Occupation al Therapy, Speech Therapy, and Physical Therapy were initiated and will continue. The patient will be discharged home to stay with her daughter due to her not being safe being home alone for extended periods of time. The family declines penitentiary placement at this time.
[2017-04-28] MEDS: cefTRIAXone\\ROCEPHIN 1 GM, Syringe 0.4 ML in Sterile Water 9.6 ML SLOW IVP SCH (14:45)
[2017-04-29 04:41] LABS: Anion Gap 10 mmol/L (10-20); BUN (Urea Nitrogen) 12 mg/dL (9.8-20.1); Calc. Creatinine Clearance 39 mL/min (70-130); Calcium 8.4 mg/dL (7.8-10.44); Carbon Dioxide 24 mmol/L (23-31); Chloride 111 mmol/L (98-107); Estimated GFR-MDRD 85
[2017-04-29] MEDS: Acetaminophen 500 MG TAB PO SCH ×3 (08:20→14:08)
[2017-04-29] MEDS: Aspirin 325 mg Enteric Coated Tablet PO SCH (08:20)
[2017-04-29] MEDS: Flecainide 50 MG TAB PO SCH (08:25)
[2017-04-29] MEDS: Ferrous Sulfate 325 MG TAB PO SCH (08:27)
[2017-04-29] MEDS: Levothyroxine Sodium 75 MCG TAB PO SCH (08:28)
[2017-04-29 11:25] VITALS: BP 115/62; TEMP 98
[2017-04-29] MEDS: cefTRIAXone\\ROCEPHIN 1 GM, Syringe 0.4 ML in Sterile Water 9.6 ML SLOW IVP SCH (14:07)
--- NOTE | 2017-04-29 20:59 | ADD-DIS ---
ADDENDUM Addendum to the discharge summary that was dictated by Dr. Garzon, yesterday. HOSPITAL COURSE: The patient was held overnight for completion of preparations for home health. [facility] is ready to go out of hospital. DNR has been signed. A prescription for the cefdinir for a nother week has been sent to her [facility] pharmacy on [address], and she will continue her home meds a nd including the flecainide and the Megace. The daughter will contact Dr. Garzon's office early Mo to schedule a followup next week.
--- NOTE | 2017-05-30 13:38 | EKG ---
Test Reason : SEPSIS Blood Pressure : / mmHG Vent. Rate : 079 BPM Atrial Rate : 079 BPM P-R Int : 180 ms QRS Dur : 094 ms QT Int : 462 ms P-R-T Axes : 085 -30 058 degrees QTc Int : 529 ms Normal sinus rhythm Left axis deviation Septal infarct , age undetermined Prolonged QT Abnormal ECG Confirmed by HENNY SALEH ([id number]), web content editor LANEY GARCIA ([id number]) on 05/30/2017 1:38:17 PM [facility] Confirmed By:HENNY SALEH
== END 2017-04-29 16:28 | disposition home health service (06) | DRG 178 ==
LOC: ERS 20:25 → 2NO 23:00 → T4-B 04-24 15:31
PROVIDERS: ADMIT Family Medicine; ATTEND Family Medicine
DX: J69.0 Pneumonitis due to inhalation of food and vomit (principal); E44.0 Moderate protein-calorie malnutrition; I48.0 Paroxysmal atrial fibrillation; R13.12 Dysphagia, oropharyngeal phase; F32.9 Major depressive disorder, single episode, unspecified; R62.7 Adult failure to thrive; I10 Essential (primary) hypertension; Z68.1 Body mass index [BMI] 19.9 or less, adult; M81.0 Age-related osteoporosis without current pathological fracture; Z90.13 Acquired absence of bilateral breasts and nipples; E03.9 Hypothyroidism, unspecified; Z79.82 Long term (current) use of aspirin; F41.9 Anxiety disorder, unspecified; Z91.81 History of falling; Z66 Do not resuscitate
CPT/HCPCS: 36415; 36416; 51701; 70450; 70553; 71010; 71020; 72100; 72170; 74230; 80048; 80053; 81003; 81015; 82553; 83605; 83735; 83880; 84443; 84484; 85025; 85610; 85730; 87040; 87086; 93005; 93010; 93306; 93880; 96365; 96367; A4216; A4353; A9579; G8978-GP-CL; G8979-GP-CI; G8987-GO-CL; G8988-GO-CI; G8996-GN-CK; G8996-GN-CL; G8996-GN-CM; G8997-GN-CK; J0360; J0696; J1956; J3475; J3480; J7042

== ENCOUNTER 2017-05-02 21:01 | Emergency (ER) | payer MEDICARE | END 2017-05-02 23:25 | disposition home or self-care (01) | LOC: ERS 21:01 | DX: K60.2 Anal fissure, unspecified (principal); E03.9 Hypothyroidism, unspecified; I10 Essential (primary) hypertension; F41.9 Anxiety disorder, unspecified; F32.9 Major depressive disorder, single episode, unspecified; F03.90 Unspecified dementia, unspecified severity, without behavioral disturbance, psychotic disturbance, mood disturbance, and anxiety | CPT/HCPCS: 99283 ==

== ENCOUNTER 2017-05-06 12:26 | Inpatient (IN) | payer MEDICARE ==
[2017-05-06 13:01] LABS: #Lymphocytes 0.9 thou/uL (1.20-3.40); #Monocytes 0.5 thou/uL (0.11-0.59); #Neutrophils 9.8 thou/uL (1.40-6.50); %Basophils 0.1 % (0.0-1.0); %Eosinophils 0.3 % (0.0-10.0); %Lymphocytes 7.6 % (21.0-51.0); %Monocytes 4.8 % (0.0-10.0); Hematocrit 37.6 % (36.0-47.0); Mean Platelet Volume 5.7 fL (7.4-10.4); White Blood Cell (WBC) Count 11.2 thou/uL (4.8-10.8)
[2017-05-06 13:21] LABS: ALT (SGPT) 15 U/L (8-55); AST (SGOT) 20 U/L (5-34); Alkaline Phosphatase 94 U/L (40-150); Anion Gap 15 mmol/L (10-20); BUN (Urea Nitrogen) 17 mg/dL (9.8-20.1); Bilirubin, Total 0.4 mg/dL (0.2-1.2); Calc. Creatinine Clearance 0 mL/min (70-130); Calcium 8.2 mg/dL (7.8-10.44); Carbon Dioxide 23 mmol/L (23-31); Chloride 101 mmol/L (98-107); Estimated GFR-MDRD Greater than 90; Globulin 3.7 g/dL (2.4-3.5); Protein, Total 6.8 g/dL (6.0-8.3)
[2017-05-06 13:27] LABS: Troponin I 0.011 ng/mL (< 0.028)
[2017-05-06] MEDS ORDERED: Morphine 2 mg/2ml in 0.9% NaCl PF SYRINGE ONE ×4 (14:43→18:50)
--- NOTE | 2017-05-06 14:56 | RAD ---
1 VIEW CHEST: Date: 05/06/17 HISTORY: Unwitnessed fall. Patient found on ground by family. COMPARISON: 04/26/17. FINDINGS: There is cardiomegaly. There is atherosclerosis of the aorta. There are pleural and parenchymal rmaos es in the left lung base, similar to the prior examination. Lungs are hyperinflated. Chronic changes in the left and right lung apex due to pleural thickening. Diffuse bone demineralization. Pneumothora x is not appreciated. No acute fractures. Possible remote injury involving the posterior right ribs. IMPRESSION: 1. Pleural and parenchymal changes in the left lung base, similar to the prior examination. 2. Hyperinflation. 3. Chronic changes as above. POS: [facility]
--- NOTE | 2017-05-06 14:57 | RAD ---
2 VIEWS LEFT HIP: Date: 05/06/17 HISTORY: Fall. Pain. COMPARISON: None. FINDINGS: There is a displaced intertrochanteric fracture with associated deformity. IMPRESSION: Left hip fracture. POS: [facility]
[2017-05-06 15:25] LABS: Bilirubin Negative (Negative); Blood, Urine Negative (Negative); Glucose, Urine (Dipstick) Negative (Negative); Ketone, Urine Trace mg/dL (Negative); Nitrite Negative (Negative); Protein, Urine (Dipstick) Negative (Neg-Trace)
--- NOTE | 2017-05-06 15:31 | CT ---
CT OF HEAD NONCONTRAST 05/06/17 INDICATION: Fall. Head injury. FINDINGS: There is parenchymal atrophy with compensatory dilatation of the ventricular system. Moderate chronic microvascular ischemic disease present. There is no intracranial hemorrhage, mass effect or midline shift. IMPRESSION: There is no acute intracranial hemorrhage or mass effect. POS: [facility]
--- NOTE | 2017-05-06 15:34 | CT ---
CERVICAL SPINE CT NONCONTRAST 05/06/17 INDICATION: Fall, neck injury with pain. FINDINGS: There is left convexity curvature of the cervical spine. There is degenerative change and osseous dem ineralization without acute fracture or subluxation without acute fracture or subluxation identified . No retropulsion of bone. Incidental note of biapical pleural thickening. IMPRESSION: No acute osseous abnormality of the cervical spine identified. POS: BUTCH
--- NOTE | 2017-05-06 17:48 | HP ---
HISTORY OF PRESENT ILLNESS: Ms. Stewart is an 87-year-old female treated by Dr. Mike vargas status post right hip fracture with ORIF on 03/12/2017 who was hospitalized on 04/22/2017 with a r ight lower lobe pneumonia and altered mental status who was treated with empiric antibiotic therapy. She was in her normal dwelling place which is a house located adjacent to her granddaughter's house where she had an unwitnessed fall and was found on the ground. She was transported to the emergency room at which time a left hip fracture was found. No operative treatment is desired for this fractur e. Of note, the family was in the process of getting a home hospice evaluation completed when this o ccurred. There are advanced directives in the possession of the granddaughter who has the durable po wer of animal stunner (Debi Elliott at [phone]) and no resuscitation efforts are desired in any untow cherri event should happen. PAST MEDICAL HISTORY: 1. Osteoporosis. 2. Breast tumor status post bilateral mastectomy. 3. Clouded mentation with specific level of dementia, not known. 4. Hypothyroidism, status post thyroidectomy. 5. History of right hip fracture on 03/12/2017. 6. History of supraventricular tachycardia and paroxysmal atrial fibrillation. PAST SURGICAL HISTORY: 1. Hip fracture as above. 2. Thyroidectomy. 3. Bilateral mastectomy. CURRENT MEDICATIONS: Levothyroxine 75 mcg daily, tramadol 50 mg 3 times daily, megestrol 20 mg orall y 3 times daily. ALLERGIES: Reaction to TOPICAL IODINE solution which causes rash. PHYSICAL EXAMINATION: VITAL SIGNS: Pulse 95, temperature 98.1, blood pressure 153/93, 98% O2 saturation temperature 98.3. GENERAL: Thin, frail, emaciated female lying in the supine position. Her orbits showed th e soft tissue/eyes are sunken. She has temporal wasting. HEENT: Her oral cavity appears dry, no thyromegaly or lymphadenopathy. LUNGS: Clear to auscultation. CARDIAC: Regular rate and rhythm. ABDOMEN: Nontender to touch. Her left hip is tender to palpation. SKIN: Pale and try. LABORATORY AND X-RAY FINDINGS: White blood cell count 11.2, hemoglobin 11.8. Sodium 135, potassium 3.5, albumin 3.1, creatinine 0.6. Troponin I not elevated. ASSESSMENT: 1. Emaciated elderly female with constitutional decline to baseline dementia with episodes of confus ion reported by granddaughter, the exact level of which is undiagnosed at this time. 2. Acute left hip fracture with no treatment desired. 3. History of recent right hip fracture. 4. Osteoporosis. 5. History of hypothyroidism. 6. History of paroxysmal atrial fibrillation. 7. History of breast tumor status post bilateral mastectomy. PLAN: 1. Hospitalization. 2. Pain control. 3. Do not resuscitate status and hospice consultation.
[2017-05-06] MEDS ORDERED: Ketorolac Tromethamine 30 MG/ML VIAL ONE (18:50)
[2017-05-06] MEDS ORDERED: HYDROcodone/Acetaminophen 5/325 mg Tablet PO PRN ×2 (20:24)
[2017-05-06] MEDS ORDERED: Ondansetron ODT 4 MG TAB SL PRN (20:24)
[2017-05-06] MEDS ORDERED: Sodium Chloride 0.9% 1,000 ML IV SCH (20:24)
[2017-05-06] MEDS ORDERED: Ondansetron HCl/PF 4 MG/2 ML Vial IVP PRN (20:24)
[2017-05-06 21:27] VITALS: BMI 15.9
[2017-05-07] MEDS: Morphine 4 MG/ML VIAL SLOW IVP PRN ×8 (00:50→20:23)
--- NOTE | 2017-05-07 12:07 | PRG ---
DATE OF SERVICE: 05/07/2017 TIME: 11:00 a.m. SUBJECTIVE: The patient is an 87-year-old white female recently had a repair of a right hip fracture on 03/12/2017. She was also recently hospitalized with pneumonia and then again she fell sustaining a left hip fracture. Last night, she was having pain. However, there was significant interval with out pain medications given. This morning, she was given morphine with good results. She is talking coherent at this time. No family is present. OBJECTIVE: VITAL SIGNS: Temperature 97.6, pulse 145, respirations 16, pulse ox 98, blood pressure 108/85. HEART: Tachycardic. LUNGS: Relatively clear. ABDOMEN: Soft. LABORATORY DATA: This morning, none. ASSESSMENT: 1. Recent left hip fracture to medically manage. 2. Postop, status post right hip fracture repair. 3. Recent pneumonia. 4. Tachycardia, resolved at this time, blood pressure is 117/80 with a heart rate of 104. 5. Dementia. 6. Osteoporosis. 7. Hypothyroidism. 8. Paroxysmal atrial fibrillation. PLAN: 1. Continue hydration. 2. Regular diet. 3. Pain control with morphine. 4. Family desires hospice placement. 5. We will continue to follow.
[2017-05-07] MEDS: NS 0.9% w/ 20 MEQ KCL 1,000 ML IV SCH ×2 (12:24→23:00)
[2017-05-07] MEDS ORDERED: Promethazine HCl 25 MG/ML VIAL SLOW IVP PRN (16:08)
[2017-05-07] MEDS: Meperidine HCl/PF 25 MG/ML VIAL SLOW IVP PRN ×2 (16:24→21:30)
[2017-05-08] MEDS: Morphine 4 MG/ML VIAL SLOW IVP PRN ×5 (00:20→12:54)
[2017-05-08 04:31] LABS: #Eosinphils 0.1 thou/uL (0.0-0.7); #Lymphocytes 1.1 thou/uL (1.20-3.40); #Monocytes 0.8 thou/uL (0.11-0.59); #Neutrophils 7.7 thou/uL (1.40-6.50); %Basophils 0.1 % (0.0-1.0); %Eosinophils 0.6 % (0.0-10.0); %Lymphocytes 11.6 % (21.0-51.0); %Monocytes 8.5 % (0.0-10.0); Hematocrit 25.5 % (36.0-47.0); Mean Platelet Volume 5.7 fL (7.4-10.4); Red Blood Cell (RBC) Count 2.69 mill/uL (4.20-5.40); White Blood Cell (WBC) Count 9.7 thou/uL (4.8-10.8)
[2017-05-08 04:51] LABS: Anion Gap 15 mmol/L (10-20); BUN (Urea Nitrogen) 15 mg/dL (9.8-20.1); Calc. Creatinine Clearance 44 mL/min (70-130); Calcium 7.5 mg/dL (7.8-10.44); Carbon Dioxide 20 mmol/L (23-31); Chloride 106 mmol/L (98-107); Estimated GFR-MDRD Greater than 90
--- NOTE | 2017-05-08 08:35 | PRG ---
DATE OF SERVICE: 05/08/2017 SUBJECTIVE: The patient continues to complain of pain. Per the daughter, the pain is in her sacrum more than her hip. She has not been eating much, but eating some macaroni and cheese from home. PHYSICAL EXAMINATION: VITAL SIGNS: Temperature 97.3, pulse of 98, respirations 20, blood pressure 164 /72, pulse ox is 98% on room air. GENERAL: She is awake. She arise in pain at times, otherwise sleeping. She does have some increased somnolence. Cachetic appearance. HEART: Tachycardic. LUNGS: Clear anteriorly. ABDOMEN: Scaphoid, flat, soft, nontender. EXTREMITIES: Left leg is shortened, no edema. LABORATORY DATA: White blood cell count 9,700, hemoglobin and hematocrit are 8.2 and 25.5, platelets of 330. Sodium 137, potassium 3.5, chloride 106, CO2 20 , BUN and creatinine are 15 and 0.6, serum glucose is 69, calcium of 7.5, albumin low at 3.1. Urine culture shows no growth. ASSESSMENT AND PLAN: This is an 87-year-old female with recent admission for aspiration pneumonia, now with a left hip fracture. She is status post right hip repair in 02/2017. Per patient and family as well as recommendations of ortho, they are not pursuing fracture repair. They are recommending comfort measures in hospice. We will continue initiation of hospice care. 2. Continue pain medicines for comfort. 3. Anemia, likely dilutional with anemia of chronic disease. 4. Failure to thrive. The patient has continued to decline since her fracture on 02/2017. Agree with hospice measures at this point. 5. Dysphagia. The patient failed swallow evaluation on her last admission. She and the family are declining artificial nutrition with a PEG tube and they wish to proceed with feeding at risk and they understand the risk of aspiration pneumonia and wished to proceed. [facility]OSPITALMargarito
[2017-05-08] MEDS: Meperidine HCl/PF 25 MG/ML VIAL SLOW IVP PRN (09:12)
[2017-05-08] MEDS: NS 0.9% w/ 20 MEQ KCL 1,000 ML IV SCH (10:44)
[2017-05-08 12:11] VITALS: TEMP 98.7
[2017-05-08 12:15] VITALS: BP 169/78
== END 2017-05-08 15:29 | disposition hospice, home (50) | DRG 536 ==
LOC: ERS 12:26 → ONC 18:42
PROVIDERS: ADMIT Family Medicine; ATTEND Family Medicine
DX: S72.002A Fracture of unspecified part of neck of left femur, initial encounter for closed fracture (principal); R64 Cachexia; I48.0 Paroxysmal atrial fibrillation; F05 Delirium due to known physiological condition; F03.90 Unspecified dementia, unspecified severity, without behavioral disturbance, psychotic disturbance, mood disturbance, and anxiety; R13.10 Dysphagia, unspecified; Z68.1 Body mass index [BMI] 19.9 or less, adult; Z66 Do not resuscitate; E89.0 Postprocedural hypothyroidism; Z90.13 Acquired absence of bilateral breasts and nipples; M81.0 Age-related osteoporosis without current pathological fracture; Z87.01 Personal history of pneumonia (recurrent); Z51.5 Encounter for palliative care; D63.8 Anemia in other chronic diseases classified elsewhere; R62.7 Adult failure to thrive; I10 Essential (primary) hypertension; Z85.3 Personal history of malignant neoplasm of breast
CPT/HCPCS: 36415; 70450; 71010; 72125; 80048; 80053; 81003; 82553; 84484; 85025; 87086; 93005; 94760; J1885; J2175; J2270; J2405; J2550